=== PATIENT | female | born 1985 | race African-American/Black ===

== ENCOUNTER 2017-02-14 13:17 | Emergency (ER) | payer SELFPAY ==
[2017-02-14 13:27] VITALS: BP 138/90
--- NOTE | 2017-02-14 14:36 | ER Document Report ---
ED Oral Problem - General Chief Complaint: Toothache Stated Complaint: MOUTH PAIN Time seen by provider: 14:15 Mode of Arrival: Ambulatory Information source: Patient, [facility] Records Notes: This 31-year-old female patient comes to the emergency room complaining of toothache to the right upper jaw for several days. She has a long history of dental decay, she has not been seen here for this problem in almost a year. She reports the pain is going up into the right face causing headache. There is no fever, there is no nausea vomiting diarrhea. TRAVEL OUTSIDE OF THE [place] IN LAST 30 DAYS: No - Related Data Allergies/Adverse Reactions: No Known Allergies Allergy (Verified 04/30/16 17:08) Past Medical History - General Information source: Patient, [facility] Records - Social History Smoking Status: Current Every Day Smoker Cigarette use (# per day): Yes Chew tobacco use (# tins/day): No Smoking Education Provided: No Frequency of alcohol use: Occasional Drug Abuse: None Lives with: Friend Family History: Reviewed & Not Pertinent - Past Medical History Cardiac Medical History: Reports: Hx Hypertension - Patient does not take medications for her blood pressure problems Pulmonary Medical History: Reports: Hx Asthma Surgical Hx: Negative - Immunizations Immunizations up to date: No Hx Diphtheria, Pertussis, Tetanus Vaccination: Yes - 08/02/2011 Review of Systems - Review of Systems Constitutional: No symptoms reported EENT: Dental problem Cardiovascular: No symptoms reported Respiratory: No symptoms reported Gastrointestinal: No symptoms reported Genitourinary: No symptoms reported Female Genitourinary: No symptoms reported Musculoskeletal: No symptoms reported Skin: No symptoms reported Hematologic/Lymphatic: No symptoms reported Neurological/Psychological: No symptoms reported Physical Exam - Vital signs Vitals: Temp Pulse Resp BP Pulse Ox 98.4 F 64 16 138/90 H 98 02/14/17 13:25 02/14/17 13:25 02/14/17 13:25 02/14/17 13:25 02/14/17 13:25 Interpretation: Normal - General General appearance: Appears well, Alert In distress: None - HEENT Head: Normocephalic, Atraumatic Eyes: Normal Pupils: PERRL Mouth/Lips: Other - Right upper first molar is quite tender to percuss. The second premolar and the second molar are missing.There are several other teeth that are decayed and broken off at the gum or missing. There is no gum swelling noted. Pharynx: Normal Neck: Normal - Respiratory Respiratory status: No respiratory distress - Cardiovascular Rhythm: Regular - Abdominal Inspection: Normal - Back Back: Normal - Extremities General upper extremity: Normal inspection General lower extremity: Normal inspection - Neurological Neuro grossly intact: Yes - Psychological Associated symptoms: Normal affect, Normal mood - Skin Skin Temperature: Warm Skin Moisture: Dry Skin Color: Normal Course - Vital Signs Vital signs: Temp Pulse Resp BP Pulse Ox 98.4 F 64 16 138/90 H 98 02/14/17 13:25 02/14/17 13:25 02/14/17 13:25 02/14/17 13:25 02/14/17 13:25 Discharge - Discharge Clinical Impression: Toothache Condition: Stable Disposition: HOME, SELF-CARE Instructions: Dentist Additional Instructions: Toothache: Your pain is due to dental decay. The tooth must be repaired in order for you to feel better. You will, therefore, be referred to a dentist. Severe swelling or drainage around a tooth usually means a deep dental abscess. This also requires evaluation and treatment by the dentist, but antibiotics may be prescribed while awaiting dental treatment. You should be rechecked immediately if you develop major swelling of the face, increasing pain, a lump in the jaw or gums, headache, or fever. TAKE THE MEDICATION PRESCRIBED. FOLLOW UP WITH A DENTIST. Prescriptions: Clindamycin HCl 300 mg PO Q6 #28 capsule Hydrocodone/Acetaminophen [Hydrocodon-Acetaminophen 5-325] 1 each PO Q4 PRN #15 tablet PRN Reason:
== END 2017-02-14 14:42 | disposition home or self-care (01) ==
LOC: ER 13:17
DX: K08.89 Other specified disorders of teeth and supporting structures (principal); R68.84 Jaw pain; F17.210 Nicotine dependence, cigarettes, uncomplicated
CPT/HCPCS: 99282

== ENCOUNTER 2017-06-23 13:36 | Emergency (ER) | payer SELFPAY ==
[2017-06-23] MEDS ORDERED: DEXAMETHASONE 4 MG TABLET PO ONE (15:28)
[2017-06-23] MEDS ORDERED: DIPHENHYDRAMINE HCL 50 MG CAPSULE PO ONE (15:28)
--- NOTE | 2017-06-23 15:31 | ER Document Report ---
HPI - HPI Patient complains to provider of: Right eyelid swelling Onset: Yesterday Onset/Duration: Gradual Quality of pain: Achy Pain Level: 4 Context: Patient presents complaining of right upper eyelid swelling that started yesterday. Patient states that eyelid has been very itchy. Patient noticed some drainage to her right eye today. Associated Symptoms: Other - Right eyelid swelling Exacerbated by: Denies Relieved by: Denies Similar symptoms previously: No Recently seen / treated by doctor: No - ROS ROS below otherwise negative: Yes Systems Reviewed and Negative: Yes All other systems reviewed and negative - EENT EENT: REPORTS: Eye problems - CARDIOVASCULAR Cardiovascular: DENIES: Chest pain - GASTROINTESTINAL Gastrointestinal: DENIES: Nausea - REPRODUCTIVE Reproductive: DENIES: : - MUSCULOSKELETAL Musculoskeletal: DENIES: Neck Pain - DERM Skin Color: Normal Past Medical History - General Information source: Patient - Social History Smoking Status: Current Every Day Smoker Chew tobacco use (# tins/day): No Frequency of alcohol use: Occasional Drug Abuse: None 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 Lives with: Spouse/Significant other Family History: Reviewed & Not Pertinent Patient has suicidal ideation: No Patient has homicidal ideation: No - Past Medical History Cardiac Medical History: Reports: Hx Hypertension - Patient does not take medications for her blood pressure problems Pulmonary Medical History: Reports: Hx Asthma Renal/ Medical History: Denies: Hx Peritoneal Dialysis Surgical Hx: Negative - Immunizations Immunizations up to date: No Hx Diphtheria, Pertussis, Tetanus Vaccination: Yes - 08/02/2011 Vertical Provider Document - CONSTITUTIONAL Agree With Documented VS: Yes Exam Limitations: No Limitations General Appearance: WD/WN, No Apparent Distress - INFECTION CONTROL TRAVEL OUTSIDE OF THE [place] IN LAST 30 DAYS: No - HEENT HEENT: Atraumatic, Normocephalic Notes: No fluorescein uptake, no corneal abrasion, ulcer, or dendrite, no foreign body. Extraocular movements intact, Perrl, no proptosis Patient with swelling to right upper eyelid, patient with a discrete lesion to medial aspect of right upper eyelid concerning for possible insect bite, no concern for orbital or preseptal cellulitis at this time - NECK Neck: Normal Inspection - RESPIRATORY Respiratory: Breath Sounds Normal, No Respiratory Distress - CARDIOVASCULAR Cardiovascular: Regular Rate, Regular Rhythm - BACK Back: Normal Inspection - MUSCULOSKELETAL/EXTREMETIES Musculoskeletal/Extremeties: MAEW - NEURO Level of Consciousness: Awake, Alert, Appropriate Motor/Sensory: No Motor Deficit - DERM Integumentary: Warm, Dry, No Rash. 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
[2017-06-23 20:40] VITALS: BP 128/84
== END 2017-06-23 16:00 | disposition home or self-care (01) ==
LOC: ER 13:36
DX: H02.843 Edema of right eye, unspecified eyelid (principal); L29.8 Other pruritus; L98.9 Disorder of the skin and subcutaneous tissue, unspecified; H57.8 Other specified disorders of eye and adnexa; I10 Essential (primary) hypertension; J45.909 Unspecified asthma, uncomplicated; F17.200 Nicotine dependence, unspecified, uncomplicated
CPT/HCPCS: 99282

== ENCOUNTER 2017-08-29 15:15 | Emergency (ER) | payer SELFPAY ==
[2017-08-29 15:39] VITALS: BP 134/78
[2017-08-29] MEDS ORDERED: IBUPROFEN 800 MG TABLET PO ONE (16:11)
[2017-08-29] MEDS ORDERED: CYCLOBENZAPRINE HCL 10 MG TABLET PO ONE (16:11)
--- NOTE | 2017-08-29 16:17 | ER Document Report ---
ED Neck/Back Problem - General Chief Complaint: Neck Pain >24hrs old Stated Complaint: NECK PAIN Time Seen by Provider: 08/29/17 15:55 Mode of Arrival: Ambulatory Information source: Patient Notes: 32-year-old female presents to ED for complaint of left-sided neck and upper back pain for week. She denies any injury but states that the pain is not getting any better. She states she has pain when she coughs or laughs or moves her left shoulder or neck. Respirations even on labored speaking in full sentences moving some but winces when she moves her left shoulder. TRAVEL OUTSIDE OF THE [place] IN LAST 30 DAYS: No - HPI Patient complains to provider of: Pain, Neck, Upper back Onset: Last week Onset: Gradual Timing: Waxing and waning, Still present Quality of pain: Sharp Severity: Moderate Pain Level: 4 Context: Lifting, Turning Recent injury: No - States she does not remember any injuries Exacerbated by: Cough/deep breaths, Movement of neck Similar symptoms previously: Yes Recently seen / treated by doctor: No - Related Data Allergies/Adverse Reactions: No Known Allergies Allergy (Verified 08/29/17 15:39) Past Medical History - General Information source: Patient - Social History Smoking Status: Current Every Day Smoker Cigarette use (# per day): Yes - 6 cigarettes a day Chew tobacco use (# tins/day): No Smoking Education Provided: Yes - Less than 2 minutes Frequency of alcohol use: Social Drug Abuse: None Occupation: [employer] with: Parents Family History: DM, Hypertension. denies: Arthritis, CAD, COPD, CVA, Hyperlipidemia, Malignancy, Thyroid Disfunction Patient has suicidal ideation: No Patient has homicidal ideation: No - Past Medical History Cardiac Medical History: Reports: Hx Hypertension - Patient does not take medications for her blood pressure problems Pulmonary Medical History: Reports: Hx Asthma, Hx Bronchitis EENT Medical History: Reports: None Neurological Medical History: Reports: None Endocrine Medical History: Reports: None Renal/ Medical History: Reports: None Malignancy Medical History: Reports: None GI Medical History: Reports: None Musculoskeltal Medical History: Reports None Skin Medical History: Reports None Psychiatric Medical History: Reports: None Traumatic Medical History: Reports: None Infectious Medical History: Reports: None Surgical Hx: Negative Past Surgical History: Reports: None - Immunizations Immunizations up to date: No Hx Diphtheria, Pertussis, Tetanus Vaccination: Yes - 08/02/2011 Review of Systems - Review of Systems Constitutional: No symptoms reported EENT: No symptoms reported Cardiovascular: No symptoms reported Respiratory: No symptoms reported Gastrointestinal: No symptoms reported Genitourinary: No symptoms reported Female Genitourinary: No symptoms reported Musculoskeletal: Back pain, Muscle pain, Muscle stiffness, Neck pain Skin: No symptoms reported Hematologic/Lymphatic: No symptoms reported Neurological/Psychological: No symptoms reported -: Yes All other systems reviewed and negative Physical Exam - Vital signs Vitals: Temp Pulse Resp BP Pulse Ox 98.8 F 72 16 134/78 H 100 08/29/17 15:34 08/29/17 15:34 08/29/17 15:34 08/29/17 15:34 08/29/17 15:34 Interpretation: Normal - General General appearance: Appears well, Alert - HEENT Head: Normocephalic, Atraumatic Eyes: Normal Pupils: PERRL - Respiratory Respiratory status: No respiratory distress Chest status: Nontender Breath sounds: Normal Chest palpation: Normal - Cardiovascular Rhythm: Regular Heart sounds: Normal auscultation Murmur: No - Abdominal Inspection: Normal Distension: No distension Bowel sounds: Normal Tenderness: Nontender Organomegaly: No organomegaly - Back Back: Normal, Tender - Pain to left neck shoulder and scapular area. "Left trapezius". No: Deformity/step-off, CVA tenderness, Vertebra tenderness, Scars , Scoliosis, Wounds - Extremities General upper extremity: Normal inspection, Nontender, Normal color, Normal ROM , Normal temperature General lower extremity: Normal inspection, Nontender, Normal color, Normal ROM , Normal temperature, Normal weight bearing. No: Artis's sign - Neurological Neuro grossly intact: Yes Cognition: Normal Orientation: AAOx4 Bondurant Coma Scale Eye Opening: Spontaneous Daljit Coma Scale Verbal: Oriented Daljit Coma Scale Motor: Obeys Commands Bondurant Coma Scale Total: 15 Speech: Normal Motor strength normal: LUE, RUE, LLE, RLE Sensory: Normal - Psychological Associated symptoms: Normal affect, Normal mood - Skin Skin Temperature: Warm Skin Moisture: Dry Skin Color: Normal Course - Re-evaluation Re-evalutation: 08/29/17 16:28 Patient treated with ibuprofen and Flexeril and discharged home with prescription for ibuprofen and Flexeril. Patient was given instructions for exercises for the left shoulder and to follow-up with primary doctor and also if pain continues. - Vital Signs Vital signs: Temp Pulse Resp BP Pulse Ox 98.8 F 72 16 134/78 H 100 08/29/17 15:34 08/29/17 15:34 08/29/17 15:34 08/29/17 15:34 08/29/17 15:34 Discharge - Discharge Clinical Impression: Strain of left trapezius muscle Qualifiers: Encounter type: initial encounter Qualified Code(s): S46.812A - Strain of other muscles, fascia and tendons at shoulder and upper arm level, left arm, initial encounter Condition: Stable Disposition: HOME, SELF-CARE Instructions: Exercise Program for the Shoulder ([facility]) Additional Instructions: MUSCLE STRAIN: You have strained a muscle -- torn the fibers within the muscle. This often occurs with strenuous exertion, or during an injury that suddenly stretches the muscle. The seriousness of a strain varies. Some strains heal within days, others cause problems for months. X-rays cannot show a muscle strain. X-rays are taken only if symptoms suggest that a fracture could be present. The usual treatment of a muscle strain is rest and ice packs. Sometimes, a sling, splint, or crutches may be necessary to rest the muscle. The muscle can be used again once pain subsides. Severe strains require a special exercise and stretching program to prevent permanent stiffness and disability. Your doctor will advise you if this will be necessary. Call the doctor immediately if pain or swelling becomes severe, or if numbness or discoloration develop. ICE PACKS: Apply ice packs frequently against the painful area. Many different schedules are recommended, such as "20 minutes on, 20 minutes off" or "one hour ice, two hours rest." If you need to work, you may need to go longer between ice treatments. You should plan to have the area ice packed AT LEAST one fourth of the time. The ice should be applied over the wrap, tape, or splint, or over a layer of cloth -- not directly against the skin. Some ice bags have a built-in cloth and can be put directly on the skin. WARM PACKS: After approximately two days, apply gentle heat (such as a heating pad or hot water bottle) for about 20 to 30 minutes about every two hours -- at least four times daily. Warmth and elevation will help you make a more rapid recovery , and will ease the pain considerably. Do not use HOT heat, and never apply heat for longer than 30 minutes. The continuous heat can invisibly damage skin and muscles -- even when no burn is seen on the surface. Damaged muscles can make you MORE sore. MUSCLE RELAXERS: Muscle relaxing medications are usually prescribed for acute muscle spasm or injury to the neck and back. They are often combined with antiinflammatory pain medication for increased relief. You may stop the muscle relaxer when the pain and stiffness have improved. Start the medication again if spasms recur. Muscle relaxers may cause drowsiness, especially with the first dose. Do not operate machinery or drive while under the effects of the medication. Most muscle relaxers last up to 24 hours. Do not combine the medication with alcohol. Ibuprofen Ibuprofen is an excellent, safe drug for pain control. In addition, it has potent antiinflammatory effects which are beneficial, especially in the treatment of injuries, arthritis, or tendonitis. It's best to take ibuprofen with food. Persons with ulcer disease or allergy to aspirin should notify their physician of this before taking ibuprofen. Take the medication exactly as prescribed. Don't take additional doses unless instructed to do so by your doctor. If you develop wheezing, shortness of breath, hives, faintness, stomach pain, vomiting, or dark black stools, return for re-evaluation at once. FOLLOW-UP CARE: If you have been referred to a physician for follow-up care, call the physician s office for an appointment as you were instructed or within the next two days. If you experience worsening or a significant change in your symptoms, notify the physician immediately or return to the Emergency Department at any time for re-evaluation. Prescriptions: Ibuprofen 600 mg PO Q8HP PRN #20 tablet PRN Reason: Cyclobenzaprine HCl [Flexeril 10 mg Tablet] 10 mg PO TIDP PRN #15 tab PRN Reason: Forms: Elevated Blood Pressure, Smoking Cessation Education, Return to Work Referrals: [facility] [Provider Group] - Follow up as needed YUE MAHONEY MD [ACTIVE STAFF] - Follow up as needed
== END 2017-08-29 16:26 | disposition home or self-care (01) ==
LOC: ER 15:15
DX: S46.812A Strain of other muscles, fascia and tendons at shoulder and upper arm level, left arm, initial encounter (principal); M54.2 Cervicalgia; M54.6 Pain in thoracic spine; M25.512 Pain in left shoulder; F17.210 Nicotine dependence, cigarettes, uncomplicated; X58.XXXA Exposure to other specified factors, initial encounter
CPT/HCPCS: 99283

== ENCOUNTER 2017-11-13 09:16 | Emergency (ER) | payer SELFPAY ==
--- NOTE | 2017-11-13 09:42 | ER Document Report ---
ED General - General Chief Complaint: Neck Problem Stated Complaint: NECK PAIN Time Seen by Provider: 11/13/17 09:34 Mode of Arrival: Ambulatory Information source: Patient TRAVEL OUTSIDE OF THE [place] IN LAST 30 DAYS: No - HPI Notes: 32-year-old female presents today with complaints of reoccurring left-sided neck pain x 1 month. Reports pain is 7 out of 10, achy. Reports she was seen previous me for her neck pain, given Flexeril and ibuprofen with some relief. Denies any issues with swallowing, drooling, trismus, headache, chest pain shortness of breath, nausea, vomiting, abdominal pain, blurred vision, double vision, loss of vision. Denies any trauma. Denies any rashes. Denies headaches. Reports worse when she moves her head to the left. Has not been seen by her primary care for this issue. Unsure . - Related Data Allergies/Adverse Reactions: No Known Allergies Allergy (Verified 11/13/17 09:18) Past Medical History - General Information source: Patient - Social History Smoking Status: Unknown if Ever Smoked Family History: None, DM, Hypertension. denies: Arthritis, CAD, COPD, CVA, Hyperlipidemia, Malignancy, Thyroid Disfunction - Past Medical History Cardiac Medical History: Reports: Hx Hypertension - Patient does not take medications for her blood pressure problems Pulmonary Medical History: Reports: Hx Asthma, Hx Bronchitis Renal/ Medical History: Denies: Hx Peritoneal Dialysis - Immunizations Immunizations up to date: No Hx Diphtheria, Pertussis, Tetanus Vaccination: Yes - 08/02/2011 Review of Systems - Review of Systems Constitutional: No symptoms reported EENT: No symptoms reported Cardiovascular: No symptoms reported Respiratory: No symptoms reported Gastrointestinal: No symptoms reported Genitourinary: No symptoms reported Female Genitourinary: No symptoms reported Musculoskeletal: See HPI Skin: No symptoms reported Hematologic/Lymphatic: No symptoms reported Neurological/Psychological: No symptoms reported Physical Exam - Vital signs Vitals: Temp Pulse Resp BP Pulse Ox 98.6 F 76 16 135/92 H 99 11/13/17 09:22 11/13/17 09:22 11/13/17 09:22 11/13/17 09:22 11/13/17 09:22 - Notes Notes: PHYSICAL EXAMINATION: GENERAL: Well-appearing, well-nourished and in no acute distress. HEAD: Atraumatic, normocephalic. EYES: Pupils equal round and reactive to light, extraocular movements intact, conjunctiva are normal. ENT: Nares patent, oropharynx clear without exudates. Moist mucous membranes. NECK: supple without lymphadenopathy. Limited APROM to the left. Negative spurlings test. Shredder Picker + 2 bilaterally and equally. Dtr +2 bilaterally and equally in BUE. Perrla, full eomi. Face symmetrical. No rashes observed. Point tenderness to right paraspinal muscles near C6. Full APROM of shoulders. TMs intact bilaterally. No lymphadenopathy. Full APROM with shoulders. TMJ without any crepitus or clicking. Open close mouth without any pain. No open wounds or drainage. No meningismus. No noted lymphadenopathy LUNGS: Breath sounds clear to auscultation bilaterally and equal. No wheezes rales or rhonchi. HEART: Regular rate and rhythm without murmurs ABDOMEN: Soft, nontender, nondistended abdomen. No guarding, no rebound. No masses appreciated. Female : deferred Musculoskeletal: Normal range of motion, no pitting or edema. No cyanosis. NEUROLOGICAL: Cranial nerves grossly intact. Normal speech, normal gait. Normal sensory, motor exams PSYCH: Normal mood, normal affect. SKIN: Warm, Dry, normal turgor, no rashes or lesions noted. Course - Re-evaluation Re-evalutation: Rechecked the patient who is resting comfortably. On re-exam, patient is symptomatically improved. Discussed the results of the radiology as well as the diagnosis at great length. Discussed the need to return to the ER for any new or worsening sx. Patient understands to take the Rx as directed. All questions answered. Patient comfortable with the decision to go home. 11/13/17 13:16 - Vital Signs Vital signs: Temp Pulse Resp BP Pulse Ox 97.6 F 62 18 123/79 99 11/13/17 11:57 11/13/17 11:57 11/13/17 11:57 11/13/17 11:57 11/13/17 09:22 Discharge - Discharge Clinical Impression: Muscle spasm Condition: Good Disposition: HOME, SELF-CARE Additional Instructions: Nerve Contusion Your symptoms indicate a bruising injury to a nerve. This usually heals completely. If there is only minor injury, you could be better in a few days. Severe crushing of the nerve can take months to heal. For the first couple of days after the injury, treat with ice, elevation, and rest. Even after the swelling and tenderness go away, don't rub or press on the area. (You may feel a shock-like sensation when you move the area or bump it.) Follow up with the doctor as instructed. advised to return to the ER if any signs or symptoms became worse. Drive while taking Flexeril, do not operate heavy machinery or drink etoh. Take over-the- counter Motrin and Tylenol as needed for any fevers or pain. Follow up with primary care within 1-2 days. All questions and concerns answered by this provider. Patient/family states would follow plan of care and agreed to plan of care. Patient was discharged home and off unit without incident. Please excuse any errors in this document was done by tish dictation. Prescriptions: Cyclobenzaprine HCl [Flexeril 10 mg Tablet] 10 mg PO TIDP PRN #15 tab PRN Reason: Meloxicam 15 mg PO DAILY #7 tablet Forms: Return to Work
--- NOTE | 2017-11-13 10:45 | RADIOLOGY REPORT (SQ) ---
EXAM DESCRIPTION: CERV SP 4 OR 5 VIEWS COMPLETED DATE/TIME: 11/13/2017 10:18 am REASON FOR STUDY: neck pain COMPARISON: None. NUMBER OF VIEWS: Five views. TECHNIQUE: AP, lateral, obliques and odontoid radiographic images acquired of the cervical spine. LIMITATIONS: None. FINDINGS: MINERALIZATION: Normal. ALIGNMENT: Anatomic. VERTEBRAE: Vertebral bodies of normal height. DISCS: No significant osteophytes or sclerosis. Disc height maintained. FORAMINA: No osteophytes or foraminal narrowing. LATERAL AND POSTERIOR ELEMENTS: Facets, lateral masses and spinous processes without significant find ings. HARDWARE: None in the spine. SOFT TISSUES: No masses or calcifications. Lung apices clear. OTHER: No other significant finding. IMPRESSION: NO SIGNIFICANT RADIOGRAPHIC FINDING IN THE CERVICAL SPINE. TECHNICAL DOCUMENTATION: JOB ID: [id number] [employer]- All Rights Reserved
[2017-11-13] MEDS ORDERED: CYCLOBENZAPRINE HCL 10 MG TABLET PO ONE (11:28)
[2017-11-13 12:03] VITALS: BP 123/79
== END 2017-11-13 12:00 | disposition home or self-care (01) ==
LOC: ER 09:16
DX: M62.838 Other muscle spasm (principal); M54.2 Cervicalgia; Z79.899 Other long term (current) drug therapy
CPT/HCPCS: 72050; 81025; 99283

== ENCOUNTER 2017-12-24 18:08 | Emergency (ER) | payer SELFPAY ==
--- NOTE | 2017-12-24 18:57 | ER Document Report ---
ED General - General Chief Complaint: Toothache Stated Complaint: TOOTHACHE Mode of Arrival: Ambulatory Information source: Patient TRAVEL OUTSIDE OF THE [place] IN LAST 30 DAYS: No - HPI Notes: 32-year-old female presents today with complaints of left lower dental pain 3 days. pain is 6/10, achy and throbbing with eating. better with advil, worse with eating hard foods. reports cold sensitivity. smoker [id number] years. No throat swelling and difficulty tolerating secretions. Unsure , Denies fevers, chills, chest pain, shortness of breath, nausea, vomiting, diarrhea, abdominal pain, hematuria,blurred vision, double vision, loss of vision, speech changes, LH, dizziness, syncope, headaches, neck pain, weakness, bowel or bladder dysfunction, saddle anesthesia, numbness or tingling in bilateral upper or lower extremities equally, muscle paralysis, weakness in bilateral upper or lower extremities equally or rash - Related Data Allergies/Adverse Reactions: Penicillins Allergy (Verified 12/24/17 18:09) Past Medical History - General Information source: Patient - Social History Smoking Status: Current Every Day Smoker Family History: None, DM, Hypertension. denies: Arthritis, CAD, COPD, CVA, Hyperlipidemia, Malignancy, Thyroid Disfunction - Past Medical History Cardiac Medical History: Reports: Hx Hypertension - Patient does not take medications for her blood pressure problems Pulmonary Medical History: Reports: Hx Asthma, Hx Bronchitis Renal/ Medical History: Denies: Hx Peritoneal Dialysis - Immunizations Immunizations up to date: No Hx Diphtheria, Pertussis, Tetanus Vaccination: Yes - 08/02/2011 Review of Systems - Review of Systems Constitutional: No symptoms reported EENT: See HPI Cardiovascular: No symptoms reported Respiratory: No symptoms reported Gastrointestinal: No symptoms reported Genitourinary: No symptoms reported Female Genitourinary: No symptoms reported Musculoskeletal: No symptoms reported Skin: No symptoms reported Hematologic/Lymphatic: No symptoms reported Neurological/Psychological: No symptoms reported Physical Exam - Vital signs Vitals: Temp Pulse Resp BP Pulse Ox 99.4 F 115 H 20 134/91 H 98 12/24/17 18:11 12/24/17 18:11 12/24/17 18:11 12/24/17 18:11 12/24/17 18:11 - Notes Notes: PHYSICAL EXAMINATION: GENERAL: Well-appearing, well-nourished and in no acute distress. HEAD: Atraumatic, normocephalic. EYES: Pupils equal round and reactive to light, extraocular movements intact, conjunctiva are normal. ENT: Nares patent, oropharynx clear without exudates. Moist mucous membranes. # 18 gingiva with swelling, erythema and induration. No drainage or open wounds. No fluctuance. No facial swelling. Poor oral dentition, right lower jaw with extensive dental caries, no definite swelling or effusion. NECK: Normal range of motion, supple without lymphadenopathy LUNGS: Breath sounds clear to auscultation bilaterally and equal. No wheezes rales or rhonchi. HEART: Regular rate and rhythm without murmurs ABDOMEN: Soft, nontender, nondistended abdomen. No guarding, no rebound. No masses appreciated. Female : deferred Musculoskeletal: Normal range of motion, no pitting or edema. No cyanosis. NEUROLOGICAL: Cranial nerves grossly intact. Normal speech, normal gait. Normal sensory, motor exams PSYCH: Normal mood, normal affect. SKIN: Warm, Dry, normal turgor, no rashes or lesions noted. Course - Re-evaluation Re-evalutation: Discussed with patient that she is. Follow-up with dentist within 1 week. Take [id number] ibuprofen and Tylenol as needed for pain. Warm compress to site 20 minutes on 20 minutes off several times a day. Take antibiotics as directed. Eat yogurt daily to prevent loose stool. After performing a Medical Screening Examination, I estimate there is LOW risk for a DEEP SPACE INFECTION (e.g., RACHANA'S ANGINA OR RETROPHARYNGEAL ABSCESS), MENINGITIS, INTRACRANIAL HEMORRHAGE, or AIRWAY COMPROMISE, thus I consider the discharge disposition reasonable. Also, there is no evidence or peritonitis, sepsis, or toxicity. I have reevaluated this patient multiple times and no significant life threatening changes are noted. The patient and I have discussed the diagnosis and risks, and we agree with discharging home with close follow-up with the understanding that symptoms and presentations can change. We also discussed returning to the Emergency Department immediately if new or worsening symptoms occur. We have discussed the symptoms which are most concerning (e.g., changing or worsening pain, trouble swallowing or breathing, neck stiffness or fever) that necessitate immediate return. 12/24/17 20:10 - Vital Signs Vital signs: Temp Pulse Resp BP Pulse Ox 99.4 F 115 H 20 134/91 H 98 12/24/17 18:11 12/24/17 18:11 12/24/17 18:11 12/24/17 18:11 12/24/17 18:11 Discharge - Discharge Clinical Impression: Dental caries Condition: Good Disposition: HOME, SELF-CARE Instructions: [facility], Dentist, Toothache (OM) Additional Instructions: Dental Infection or Abscess You have an infection, perhaps an abscess (pus formation) of the gum around one of your teeth, which is probably decayed. If there is an abscess, it may drain on its own or it may need to be opened or lanced. Severe swelling or drainage around a tooth usually means a deep dental abscess which usually requires evaluation and treatment by a dentist or oral surgeon. Antibiotics may be prescribed while awaiting dental treatment. If you develop high fever with chills, worsening pain, or increasing swelling in the area, see a dentist or oral surgeon immediately or return to the Emergency Department immediately. Prescriptions: Clindamycin HCl 300 mg PO Q6H #28 capsule Referrals: FELIPE CASIANO MD [ACTIVE STAFF] - Follow up as needed
[2017-12-24] MEDS ORDERED: ACETAMINOPHEN 325 MG TABLET PO ONE (19:30)
[2017-12-24] MEDS ORDERED: KETOROLAC TROMETHAMINE 60 MG/2 ML SDV IM ONE (20:41)
[2017-12-24 21:10] VITALS: BP 120/87
== END 2017-12-24 21:12 | disposition home or self-care (01) ==
LOC: ER 18:08
DX: K02.9 Dental caries, unspecified (principal); F17.210 Nicotine dependence, cigarettes, uncomplicated; I10 Essential (primary) hypertension; Z88.0 Allergy status to penicillin
CPT/HCPCS: 99283; 96372; 81025; J1885

== ENCOUNTER 2018-03-03 17:02 | Emergency (ER) | payer SELFPAY ==
[2018-03-03] MEDS ORDERED: NORMAL SALINE 1000 ML 1,000 ML IV PRN (17:58)
[2018-03-03] MEDS ORDERED: ONDANSETRON HCL INJ/PF 4 MG/2 ML SDV IV ONE (17:58)
[2018-03-03] MEDS ORDERED: HYDROMORPHONE HCL INJ/PF 2 MG/ML AMPULE IV ONE (17:58)
--- NOTE | 2018-03-03 18:05 | ER Document Report ---
ED Medical Screen (RME) - General Chief Complaint: Abdominal Pain Stated Complaint: ABDOMINAL PAIN Time Seen by Provider: 03/03/18 17:54 Mode of Arrival: Ambulatory Information source: Patient TRAVEL OUTSIDE OF THE [place] IN LAST 30 DAYS: No - HPI Onset: Other - 4 DAYS Onset/Duration: Gradual Quality of pain: Other - CAN'T / WON'T DESCRIBE Severity: Moderate Associated Symptoms: Nausea, Vomiting. denies: Vaginal bleeding Exacerbated by: Denies Relieved by: Denies Similar symptoms previously: Yes - UNKNOWN Dx Recently seen / treated by doctor: No - Related Data Allergies/Adverse Reactions: Penicillins Allergy (Verified 12/24/17 18:09) Past Medical History - General Information source: Patient - Social History Chew tobacco use (# tins/day): No Frequency of alcohol use: Occasional Drug Abuse: None - Past Medical History Cardiac Medical History: Reports: Hx Hypertension - Patient does not take medications for her blood pressure problems Pulmonary Medical History: Reports: Hx Asthma, Hx Bronchitis Neurological Medical History: Reports: None Endocrine Medical History: Reports: None Renal/ Medical History: Reports: None. Denies: Hx Peritoneal Dialysis Malignancy Medical History: Reports: None GI Medical History: Reports: None Musculoskeltal Medical History: Reports None Psychiatric Medical History: Reports: None Surgical Hx: Negative - Immunizations Immunizations up to date: No Hx Diphtheria, Pertussis, Tetanus Vaccination: Yes - 08/02/2011 Review of Systems - Review of Systems Constitutional: No symptoms reported EENT: No symptoms reported Cardiovascular: No symptoms reported Respiratory: No symptoms reported Gastrointestinal: See HPI Genitourinary: No symptoms reported Musculoskeletal: No symptoms reported Skin: No symptoms reported Neurological/Psychological: No symptoms reported Physical Exam - Vital signs Vitals: Temp Pulse Resp BP Pulse Ox 98.5 F 78 18 134/89 H 99 03/03/18 17:07 03/03/18 17:07 03/03/18 17:07 03/03/18 17:07 03/03/18 17:07 Interpretation: Normal. No: Tachycardic, Tachypneic, Febrile - General General appearance: Alert In distress: Moderate - HEENT Head: Normocephalic Eyes: Normal Conjunctiva: Normal Ears: Normal Nasal: Normal Mouth/Lips: Normal Mucous membranes: Normal - Respiratory Respiratory status: No respiratory distress - Cardiovascular Rhythm: Regular - Abdominal Inspection: Normal - Extremities General upper extremity: Normal inspection General lower extremity: Normal inspection - Neurological Neuro grossly intact: Yes Cognition: Normal Orientation: AAOx4 - Skin Skin Temperature: Warm Skin Moisture: Dry Skin Color: Normal Skin Turgor: Elastic Course - Vital Signs Vital signs: Temp Pulse Resp BP Pulse Ox 98.5 F 78 18 134/89 H 99 03/03/18 17:07 03/03/18 17:07 03/03/18 17:07 03/03/18 17:07 03/03/18 17:07
[2018-03-03 19:19] LABS: ABSOLUTE BASOPHILS # (AUTO) 0.1 10^3/uL (0.0-0.2); ABSOLUTE EOSINOPHILS # (AUTO) 0.1 10^3/uL (0.0-0.6); ABSOLUTE LYMPHOCYTES (AUTO) 1.7 10^3/uL (0.5-4.7); ABSOLUTE MONOCYTES (AUTO) 0.7 10^3/uL (0.1-1.4); ABSOLUTE NEUT (AUTO) 9.1 10^3/uL (1.7-8.2); BASOPHILS % (AUTO) 0.9 % (0-2); EOSINOPHILS % (AUTO) 0.7 % (0-6); HEMATOCRIT 37.6 % (36.0-47.0); HEMOGLOBIN 11.9 g/dL (12.0-15.5); LYMPHOCYTES % (AUTO) 14.5 % (13-45); MEAN CORPUSCULAR HEMOGLOBIN 21.2 pg (27.0-33.4); MEAN CORPUSCULAR HGB CONC 31.6 g/dL (32.0-36.0); MEAN CORPUSCULAR VOLUME 67 fl (80-97); MONOCYTES % (AUTO) 6.2 % (3-13); PLATELET COUNT 251 10^3/uL (150-450); RED BLOOD COUNT 5.61 10^6/uL (3.72-5.28); RED CELL DISTRIBUTION WIDTH 16.8 % (11.5-14.0); SEGMENTED NEUTROPHILS % (AUTO) 77.7 % (42-78); TOTAL CELLS COUNTED % (AUTO) 100 %; WHITE BLOOD COUNT 11.6 10^3/uL (4.0-10.5)
--- NOTE | 2018-03-03 19:42 | ER Document Report ---
ED GI/ - General Chief Complaint: Abdominal Pain Stated Complaint: ABDOMINAL PAIN Time Seen by Provider: 03/03/18 17:54 Mode of Arrival: Ambulatory Notes: The patient is a 32-year-old female who presents with several days of epigastric abdominal pain after she eats. She is also having nausea, vomiting and diarrhea. She denies fevers, right upper quadrant abdominal pain, rash, flank pain, back pain, hematemesis or hematochezia. TRAVEL OUTSIDE OF THE [place] IN LAST 30 DAYS: No - Related Data Allergies/Adverse Reactions: Penicillins Allergy (Verified 12/24/17 18:09) Past Medical History - General Information source: Patient - Social History Smoking Status: Former Smoker Chew tobacco use (# tins/day): No Frequency of alcohol use: Occasional Drug Abuse: None Family History: None, DM, Hypertension. denies: Arthritis, CAD, COPD, CVA, Hyperlipidemia, Malignancy, Thyroid Disfunction Patient has suicidal ideation: No Patient has homicidal ideation: No - Past Medical History Cardiac Medical History: Reports: Hx Hypertension - Patient does not take medications for her blood pressure problems Pulmonary Medical History: Reports: Hx Asthma, Hx Bronchitis Neurological Medical History: Reports: None Endocrine Medical History: Reports: None Renal/ Medical History: Reports: None. Denies: Hx Peritoneal Dialysis Malignancy Medical History: Reports: None GI Medical History: Reports: None Musculoskeltal Medical History: Reports None Psychiatric Medical History: Reports: None Surgical Hx: Negative - Immunizations Immunizations up to date: No Hx Diphtheria, Pertussis, Tetanus Vaccination: Yes - 08/02/2011 Review of Systems - Review of Systems Notes: REVIEW OF SYSTEMS: CONSTITUTIONAL: -fevers, -chills EENT: -eye pain, -difficulty swallowing, -nasal congestion CARDIOVASCULAR: -chest pain, -syncope. RESPIRATORY: -cough, -SOB GASTROINTESTINAL: +epigastric abdominal pain, +nausea, +vomiting, +diarrhea GENITOURINARY: -dysuria, -hematuria MUSCULOSKELETAL: -back pain, -neck pain SKIN: -rash or skin lesions. HEMATOLOGIC: -easy bruising or bleeding. LYMPHATIC: -swollen, enlarged glands. NEUROLOGICAL: -altered mental status or loss of consciousness, -headache, - neurologic symptoms PSYCHIATRIC: -anxiety, -depression. ALL OTHER SYSTEMS REVIEWED AND NEGATIVE. Physical Exam - Vital signs Vitals: Temp Pulse Resp BP Pulse Ox 98.5 F 78 18 134/89 H 99 03/03/18 17:07 03/03/18 17:07 03/03/18 17:07 03/03/18 17:07 03/03/18 17:07 - Notes Notes: PHYSICAL EXAMINATION: GENERAL: Well-appearing, well-nourished and in no acute distress. HEAD: Atraumatic, normocephalic. EYES: Pupils equal round and reactive to light, extraocular movements intact, sclera anicteric, conjunctiva are normal. ENT: nares patent, oropharynx clear without exudates. Moist mucous membranes. NECK: Normal range of motion, supple without lymphadenopathy LUNGS: Breath sounds clear to auscultation bilaterally and equal. No wheezes rales or rhonchi. HEART: Regular rate and rhythm without murmurs ABDOMEN: Soft, mild epigastric tenderness, hyperactive bowel sounds. No guarding, no rebound. No masses appreciated. EXTREMITIES: Normal range of motion, no pitting or edema. No cyanosis. NEUROLOGICAL: Cranial nerves grossly intact. Normal speech, normal gait. Normal sensory and motor exams. PSYCH: Normal mood, normal affect. SKIN: Warm, Dry, normal turgor, no rashes or lesions noted. Course - Re-evaluation Re-evalutation: Patient appears well. She has epigastric tenderness, but normal lipase and rest of blood work is also unremarkable. Suspect a gastritis from her frequent nausea and vomiting. Instructed her to continue to stay hydrated and follow-up with her primary care physician and GI doctor. Given strict return precautions and she understands. - Vital Signs Vital signs: Temp Pulse Resp BP Pulse Ox 98.5 F 78 18 134/89 H 99 03/03/18 17:07 03/03/18 17:07 03/03/18 17:07 03/03/18 17:07 03/03/18 17:07 - Laboratory Result Diagrams: 03/03/18 18:30 03/03/18 20:30 Laboratory results interpreted by me: 03/03/18 03/03/18 03/03/18 18:30 20:13 20:30 WBC 11.6 H RBC 5.61 H Hgb 11.9 L MCV 67 L MCH 21.2 L MCHC 31.6 L RDW 16.8 H Absolute Neutrophils 9.1 H Potassium 3.5 L BUN 5 L Total Protein 6.2 L Urine Ketones 20 H Discharge - Discharge Clinical Impression: Nausea vomiting and diarrhea, Epigastric abdominal pain Condition: Stable Disposition: HOME, SELF-CARE Additional Instructions: VOMITING: Vomiting (or nausea without vomiting) can be caused by many other different problems. It can mean that something's wrong with the stomach, such as ulcers or inflammation or the intestinal tract, such as appendicitis. But it can also be a symptom of a problem that has nothing to do with the stomach or intestines. Vomiting is common with severe headaches, earaches, tonsillitis, and kidney infections, etc. We see it with pneumonia or heart attacks. Drugs can cause nausea and vomiting. Many abdominal problems cause vomiting; for example, gallstones, kidney stones, pancreatitis, and intestinal obstruction ( blocked bowels). In most cases, curing the vomiting depends on fixing the problem that caused it. For temporary relief, we may use an anti-nausea medicine. For home use, we can prescribe suppositories, chewable pills, pills that dissolve in the mouth, or liquid anti-nausea drugs. If the vomiting seems to be caused by a problem in the stomach, acid-suppressing drugs may be prescribed as well. It's important to avoid dehydration. Sip small amounts of clear liquids ( soft drinks, tea, broth, etc) . Try to take fluids frequently even if you are vomiting to prevent dehydration. Take increasing amounts of fluid and when liquids are being consumed successfully, advance to small amounts of bland food (toast, soups, mashed potatoes, etc.) until you are able to resume a regular diet. Avoid aspirin, tobacco, and alcohol. If the vomiting worsens, if the problem that's making you vomit worsens, or if there's evidence of bleeding in the stomach (such as black, tarry stool, or bloody or black vomit), you should return immediately. Also, return if abdominal pain worsens or becomes localized to one area or you develop high fever. Call your doctor if you aren't improved in 24 hours. DIARRHEA, NON-SPECIFIC: Diarrhea means frequent, watery stools. There are many causes. Any problem that keeps the intestinal tract from absorbing water from the stool can lead to diarrhea. A sudden new diarrhea problem is usually caused by a virus, food sensitivity, toxic bacteria, or drugs. In this case, we expect the problem to go away soon. Testing is done only if you seem seriously ill from the diarrhea. If you have chronic diarrhea, or diarrhea that keeps coming back, we need to find out why. Chronic diarrhea can be due to inflammation of the bowels such as Crohn's disease or ulcerative colitis, food sensitivity such as intolerance to lactose or wheat protein, irritable bowel syndrome, and other problems. If your diarrhea is a significant problem but it's not clear why you have it, we' ll refer you to a specialist for further testing. During an episode of diarrhea, drink small amounts (two to six ounces) of clear liquids (soft drinks, sport drinks, herb teas, broth, etc). Take fluids frequently to prevent dehydration. It's usually not a problem to take mild anti- diarrhea medication such as Kaopectate or Pepto-Bismol. As the diarrhea eases, advance to small amounts of bland food (mashed potato, toast) for 24 hours. Call the physician if blood appears in your vomit or stool, if vomiting lasts longer than 24 hours, if the abdominal pain worsens or becomes localized to one area, if you develop high fever, or if you become lightheaded and weak. VIRAL SYNDROME: The physician has diagnosed a viral infection. Viruses not only cause "colds," but can cause many different symptoms including generalized aching, fever, headache, cough, diarrhea, nausea, vomiting, and fatigue. The treatment, for the most part, is simply relief of symptoms. This means that antibiotics are usually not given. Rest, fluids, pain medications and, occasionally, medication for the specific symptoms that are most bothersome will be prescribed. Use good handwashing to avoid passing the virus to others. Shared toys should be cleaned with disinfectant. Clean the toilets, sinks, and counter surfaces in bathrooms. Launder clothing in hot water. Contact the physician if you develop any new or unusual symptoms such as severe headache, stiff neck, high fever, chest pain, productive cough, or shortness of breath. You should be rechecked if you don't see marked improvement within seven to 10 days. INTRAVENOUS (I V) FLUIDS: As part of your care today, you received intravenous (IV) fluids. IV fluids are administered to patients who are dehydrated or to those who have certain chemical (electrolyte) abnormalities that need correcting. ANTINAUSEA MEDICATION: You have been given a medication to suppress nausea and vomiting. This type of medication can be given as a shot, pill, or suppository. It will usually last for many hours. Pills and shots usually last six to eight hours. For the typical illness, only one or two doses of the medication may be necessary. Mild lightheadedness may occur. This type of medicine can cause drowsiness. Do not drive or operate dangerous machinery while under its influence. Do not mix with alcohol. See your doctor at once if you have muscle spasms or tightness, or uncontrollable motions (particularly of the neck, mouth, or jaw). Persistent vomiting or severe lightheadedness should also be evaluated by the physician. FOLLOW-UP CARE: If you have been referred to a physician for follow-up care, call the physician s office for an appointment as you were instructed or within the next two days. If you experience worsening or a significant change in your symptoms, notify the physician immediately or return to the Emergency Department at any time for re-evaluation. Gastritis You have an inflammation of the stomach called gastritis. This commonly causes upper abdominal pain, nausea, and vomiting. In severe cases, bleeding of the stomach lining can occur. Gastritis can be caused by bacteria or viruses , alcohol, or stomach-irritating drugs. Begin with sips of clear liquids. Take increasing amounts of fluid over the first 24 hours. Then start small amounts of bland foods (such as dry toast , applesauce, mashed potato). Gradually resume your usual diet. You should take antacids every two hours until the pain has subsided. Acid -suppressing drugs may be prescribed as well. Avoid aspirin, caffeine, tobacco , and alcohol. If the abdominal pain worsens, or there is evidence of major bleeding in the stomach (such as black, tarry stool, bloody or black vomit, or lightheadedness), you should return immediately. Call the doctor if you aren't improved in 24 to 36 hours. Prescriptions: Omeprazole Magnesium [Prilosec Otc] 20 mg PO Q12H #14 tablet. Ondansetron [Zofran Odt 4 mg Tablet] 1 - 2 tab PO Q4H PRN #15 tab.rapdis PRN Reason: For Nausea/Vomiting Forms: Elevated Blood Pressure Referrals: FRED AVALOS MD [ACTIVE STAFF] - Follow up as needed
[2018-03-03] MEDS ORDERED: PANTOPRAZOLE SODIUM 40 MG VIAL IV ONE (20:00)
[2018-03-03 20:32] LABS: AMORPHOUS SEDIMENT,URINE TRACE /HPF; APPEARANCE,URINE SLIGHTLY-CLOUDY; BILIRUBIN,URINE NEGATIVE (NEGATIVE); COLOR,URINE YELLOW; GLUCOSE, URINE NEGATIVE (NEGATIVE); KETONES,URINE 20 mg/dL (NEGATIVE); LEUKOCYTE ESTERASE,URINE NEGATIVE (NEGATIVE); NITRITE,URINE NEGATIVE (NEGATIVE); PROTEIN,URINE NEGATIVE (NEGATIVE); URINE SPECIFIC GRAVITY 1.012; UROBILINOGEN,URINE NEGATIVE mg/dL (<2.0)
[2018-03-03 21:03] LABS: ALANINE AMINOTRANSFERASE 24 U/L (9-52); ALBUMIN 3.6 g/dL (3.5-5.0); ALKALINE PHOSPHATASE 71 U/L (38-126); ANION GAP 12 (5-19); ASPARTATE AMINO TRANSFERASE 14 U/L (14-36); BILIRUBIN,DIRECT 0.2 mg/dL (0.0-0.4); BILIRUBIN,TOTAL 0.4 mg/dL (0.2-1.3); BLOOD UREA NITROGEN 5 mg/dL (7-20); CARBON DIOXIDE 25 mmol/L (22-30); CHLORIDE 107 mmol/L (98-107); GLUCOSE 91 mg/dL (75-110); LIPASE 27.8 U/L (23-300); POTASSIUM 3.5 mmol/L (3.6-5.0); SODIUM 144.2 mmol/L (137-145); TOTAL PROTEIN 6.2 g/dL (6.3-8.2)
[2018-03-03 21:35] VITALS: BP 132/88
== END 2018-03-03 21:34 | disposition home or self-care (01) ==
LOC: ER 17:02
DX: R10.13 Epigastric pain (principal); R11.2 Nausea with vomiting, unspecified; R19.7 Diarrhea, unspecified; I10 Essential (primary) hypertension; Z87.891 Personal history of nicotine dependence; J45.909 Unspecified asthma, uncomplicated
CPT/HCPCS: 99284; 96374; 96375; 36415; 83690; 84703; 85025; 80053; 81001; J1170; J2405

== ENCOUNTER 2018-03-04 03:19 | Emergency (ER) | payer SELFPAY ==
[2018-03-04] MEDS ORDERED: MAG HYDROX/AL HYDROX/SIMETH SUSP 30 ML UDCUP PO ONE (04:15)
[2018-03-04] MEDS ORDERED: ONDANSETRON HCL INJ/PF 4 MG/2 ML SDV IV ONE (04:15)
[2018-03-04] MEDS ORDERED: KETOROLAC TROMETHAMINE INJ/PF 30 MG/1 ML SDV IV ONE (04:15)
[2018-03-04] MEDS ORDERED: NORMAL SALINE 1000 ML 1,000 ML IV ONE (04:15)
[2018-03-04] MEDS ORDERED: LIDOCAINE 2% VISCOUS SOLN 20 ML UDCUP PO ONE (04:15)
--- NOTE | 2018-03-04 04:16 | ER Document Report ---
ED General - General Chief Complaint: Abdominal Pain Stated Complaint: ABDOMINAL PAIN Time Seen by Provider: 03/04/18 04:08 Notes: Patient is a 32-year-old female who returns emergency department with a chief complaint of epigastric pain and one episode of vomiting since she is previously discharge. Patient states that her pain is not improved but she has not taken any the medications that she was discharged home with. Patient states that her epigastric pain is been for the past 4 days. She admits to nausea vomiting and diarrhea. She denies any fevers, right upper quadrant pain , right lower quadrant pain, flank pain, back pain hematemesis or hematochezia. Patient states that she is recently tested negative on her test earlier this afternoon. Denies any previous abdominal procedures. TRAVEL OUTSIDE OF THE [place] IN LAST 30 DAYS: No - Related Data Allergies/Adverse Reactions: Penicillins Allergy (Verified 12/24/17 18:09) Past Medical History - Social History Smoking Status: Unknown if Ever Smoked Family History: None, DM, Hypertension. denies: Arthritis, CAD, COPD, CVA, Hyperlipidemia, Malignancy, Thyroid Disfunction Patient has suicidal ideation: No Patient has homicidal ideation: No - Past Medical History Cardiac Medical History: Reports: Hx Hypertension - Patient does not take medications for her blood pressure problems Pulmonary Medical History: Reports: Hx Asthma, Hx Bronchitis Renal/ Medical History: Denies: Hx Peritoneal Dialysis - Immunizations Immunizations up to date: No Hx Diphtheria, Pertussis, Tetanus Vaccination: Yes - 08/02/2011 Review of Systems - Review of Systems Constitutional: No symptoms reported EENT: No symptoms reported Cardiovascular: No symptoms reported Respiratory: No symptoms reported Gastrointestinal: See HPI Genitourinary: No symptoms reported Female Genitourinary: No symptoms reported Musculoskeletal: No symptoms reported -: Yes All other systems reviewed and negative Physical Exam - Vital signs Vitals: Temp Pulse Resp BP Pulse Ox 98.7 F 68 18 135/86 H 99 03/04/18 03:32 03/04/18 03:32 03/04/18 03:32 03/04/18 03:32 03/04/18 03:32 - Notes Notes: PHYSICAL EXAM GENERAL: Alert, interacts well. HEAD: Normocephalic, atraumatic. EYES: Pupils equal, round, and reactive to light. Extraocular movements intact. ENT: Oral mucosa moist, tongue midline. NECK: Full range of motion. Supple. Trachea midline. LUNGS: Clear to auscultation bilaterally, no wheezes, rales, or rhonchi. No respiratory distress. HEART: Regular rate and rhythm. No murmurs, gallops, or rubs. ABDOMEN: Soft, nondistended, moderate epigastric pain negative Tse sign. No guarding, rebound, or rigidity.. Bowel sounds present in all 4 quadrants. EXTREMITIES: Moves all 4 extremities spontaneously. No edema, radial and dorsalis pedis pulses 2/4 bilaterally. No cyanosis. NEUROLOGICAL: Alert and oriented x4. Normal speech. PSYCH: Normal affect, normal mood. SKIN: Warm, dry, normal turgor. No rashes or lesions noted. Course - Re-evaluation Re-evalutation: 03/04/18 05:05 Patient is a 32-year-old female who returns emergency department with initial diagnosis of gastritis. Patient was medicated and on repeat abdominal exam still with persistent epigastric tenderness. Patient was sent for a CT of the abdomen pelvis with IV contrast to evaluate for possible perforating gastric ulcer. No evidence of that noted on imaging. Patient again given additional medications. Repeat abdominal exams with pain improving. Discussed with patient that she will need to follow-up with gastroenterology for possible gastric ulcers. Discussed bowel rest utilizing a clear liquid diet and to take medications as directed on her prescriptions. Patient agrees with plan and stable for discharge home - Vital Signs Vital signs: Temp Pulse Resp BP Pulse Ox 98.0 F 81 16 121/80 98 03/04/18 06:36 03/04/18 06:36 03/04/18 06:36 03/04/18 06:36 03/04/18 06:36 - Diagnostic Test Radiology reviewed: Image reviewed, Reports reviewed Discharge - Discharge Clinical Impression: Epigastric abdominal pain Condition: Good Disposition: HOME, SELF-CARE Instructions: Gastritis ([facility]) Prescriptions: Nystatin/Dexameth/Diphen [Magic Mouthwash ([facility] Formula) Susp] 5 ml PO QID #120 ml Sucralfate [Carafate 1 gm Tablet] 1 gm PO ACHS #120 tablet Forms: Return to Work Referrals: KOBY SANCHES MD [ACTIVE STAFF] - Follow up in 1 week
[2018-03-04] MEDS ORDERED: PANTOPRAZOLE SODIUM 40 MG VIAL IV ONE (05:04)
--- NOTE | 2018-03-04 05:53 | RADIOLOGY REPORT (SQ) ---
EXAM DESCRIPTION: CT ABDOMEN AND PELVIS WITH CONTRAST CLINICAL HISTORY: epigastric pain COMPARISON: None Available. TECHNIQUE: CT of the abdomen and pelvis performed following IV administration of 70 mL of Isovue-370. DLP: 843.52 mGycm FINDINGS: Lung Bases: The visualized lung bases are clear. Bones: No destructive bone lesions identified. Abdomen: Liver: The liver has normal size and density. No intrahepatic mass or biliary dilatation. Gallbladder: No calcified gallstones. Spleen, Pancreas, and Adrenal Glands: The spleen, pancreas, and adrenal glands are unremarkable. Kidneys: The kidneys have normal size and contour without evidence of solid mass or hydronephrosis. Vasculature: The aorta and IVC have normal caliber and position. The portal vein is patent. The proximal visceral and renal arteries are patent. Stomach: The stomach and duodenum have normal course. Other: No free intraperitoneal air. Small amount of free fluid. Pelvis: Bladder: Urinary bladder is unremarkable. Bowel: Wall thickening of loops of small bowel without definite dilatation. No transition point. Appendix: Normal appendix. Pelvis: Uterus is unremarkable. IMPRESSION: 1. Findings compatible with acute enteritis. This could be of inflammatory or infectious etiology. This exam was performed according to our departmental dose-optimization program, which includes automated exposure control, adjustment of the mA and/or kV according to patient size and/or use of iterative reconstruction technique.
[2018-03-04 06:37] VITALS: BP 121/80
== END 2018-03-04 06:37 | disposition home or self-care (01) ==
LOC: ER 03:19
DX: R10.13 Epigastric pain (principal); R11.2 Nausea with vomiting, unspecified; R19.7 Diarrhea, unspecified; I10 Essential (primary) hypertension; Z88.0 Allergy status to penicillin
CPT/HCPCS: 99284; 96361; 96374; 96375; 74177; J3490; J1885; S0164; J2405; J7030

== ENCOUNTER 2018-06-14 14:25 | Emergency (ER) | payer SELFPAY ==
[2018-06-14] MEDS ORDERED: IBUPROFEN 600 MG TABLET PO ONE (15:44)
--- NOTE | 2018-06-14 15:44 | ER Document Report ---
ED Medical Screen (RME) - General Chief Complaint: Headache Stated Complaint: HEADACHE Time Seen by Provider: 06/14/18 15:41 Mode of Arrival: Ambulatory Information source: Patient Notes: Patient is a 32-year-old female who presents with chief complaint of weight loss. Patient reports 60-70 pound weight loss over the last month. Patient also reports headache 2 weeks, has not taken any medications for same. Patient reports history of hypertension. Patient reports that the main reason her for her visit today is to get "basic blood work done" to evaluate why she is losing weight. Patient denies any nausea, vomiting, diarrhea, fever or any urinary symptoms. Exam: Patient ambulates with steady gait, appears nontoxic with no distress noted. Lungs are clear to auscultation bilaterally. I have greeted and performed a rapid initial assessment of this patient. A comprehensive ED assessment and evaluation of the patient, analysis of test results and completion of the medical decision making process will be conducted by additional ED providers. Dictation of this chart was performed using voice recognition software; therefore, there may be some unintended grammatical errors. TRAVEL OUTSIDE OF THE [place] IN LAST 30 DAYS: No - Related Data Allergies/Adverse Reactions: Penicillins Allergy (Verified 12/24/17 18:09) Past Medical History - Past Medical History Cardiac Medical History: Reports: Hx Hypertension - Patient does not take medications for her blood pressure problems Pulmonary Medical History: Reports: Hx Asthma, Hx Bronchitis Renal/ Medical History: Denies: Hx Peritoneal Dialysis - Immunizations Immunizations up to date: No Hx Diphtheria, Pertussis, Tetanus Vaccination: Yes - 08/02/2011
[2018-06-14 17:07] LABS: ABSOLUTE EOSINOPHILS # (AUTO) 0.2 10^3/uL (0.0-0.6); ABSOLUTE LYMPHOCYTES (AUTO) 3.1 10^3/uL (0.5-4.7); ABSOLUTE MONOCYTES (AUTO) 0.7 10^3/uL (0.1-1.4); ABSOLUTE NEUT (AUTO) 3.2 10^3/uL (1.7-8.2); BASOPHILS % (AUTO) 0.5 % (0-2); EOSINOPHILS % (AUTO) 2.3 % (0-6); HEMATOCRIT 37.2 % (36.0-47.0); LYMPHOCYTES % (AUTO) 43.3 % (13-45); MEAN CORPUSCULAR HEMOGLOBIN 21.2 pg (27.0-33.4); MEAN CORPUSCULAR HGB CONC 32.2 g/dL (32.0-36.0); MEAN CORPUSCULAR VOLUME 66 fl (80-97); MONOCYTES % (AUTO) 9.4 % (3-13); PLATELET COUNT 245 10^3/uL (150-450); RED BLOOD COUNT 5.65 10^6/uL (3.72-5.28); RED CELL DISTRIBUTION WIDTH 16.4 % (11.5-14.0); SEGMENTED NEUTROPHILS % (AUTO) 44.5 % (42-78); TOTAL CELLS COUNTED % (AUTO) 100 %; WHITE BLOOD COUNT 7.1 10^3/uL (4.0-10.5)
[2018-06-14 17:23] LABS: ALANINE AMINOTRANSFERASE 25 U/L (9-52); ALKALINE PHOSPHATASE 54 U/L (38-126); ANION GAP 9 (5-19); ASPARTATE AMINO TRANSFERASE 18 U/L (14-36); BILIRUBIN,DIRECT 0.2 mg/dL (0.0-0.4); BILIRUBIN,TOTAL 0.4 mg/dL (0.2-1.3); BLOOD UREA NITROGEN 10 mg/dL (7-20); CALCIUM 9.3 mg/dL (8.4-10.2); CARBON DIOXIDE 27 mmol/L (22-30); CHLORIDE 108 mmol/L (98-107); GLUCOSE 80 mg/dL (75-110); SODIUM 144.1 mmol/L (137-145); TOTAL PROTEIN 7.1 g/dL (6.3-8.2)
[2018-06-14 17:24] LABS: APPEARANCE,URINE CLEAR; BILIRUBIN,URINE NEGATIVE (NEGATIVE); GLUCOSE, URINE NEGATIVE (NEGATIVE); KETONES,URINE NEGATIVE (NEGATIVE); LEUKOCYTE ESTERASE,URINE NEGATIVE (NEGATIVE); NITRITE,URINE NEGATIVE (NEGATIVE); PROTEIN,URINE >=500 mg/dL (NEGATIVE)
[2018-06-14 17:27] LABS: COLOR,URINE RED
[2018-06-14 17:47] VITALS: BP 118/74
--- NOTE | 2018-06-14 18:58 | ER Document Report ---
ED General - General Chief Complaint: Headache Stated Complaint: HEADACHE Time Seen by Provider: 06/14/18 15:41 Mode of Arrival: Ambulatory Information source: Patient Notes: 32 yo AAF w/ PMHx of HTN presents with history of intermittent headaches for the past 2-3 months. Denies any symptoms currently. States headaches occur spontaneously without any identifiable triggers, and resolve within a few hours without intervention. Also reports 60 lb weight loss over the course of 1 month stating she was "204 lbs at one point and now 149 lbs" per her weight taken at her plasma [facility] center. Denies vision changes, syncope, dizziness, lightheadedness, CP, palpitations, SOB, n/v/d/c, abdominal pain. TRAVEL OUTSIDE OF THE [place] IN LAST 30 DAYS: No - HPI Patient complains to provider of: headache, weight loss Onset: Other - 2-3 months ago Onset/Duration: Intermittent Quality of pain: Achy Severity: Moderate Associated symptoms: Nausea Relieved by: Other - resolves spontaneously Similar symptoms previously: Yes Recently seen / treated by doctor: No - Related Data Allergies/Adverse Reactions: amoxicillin Allergy (Verified 06/14/18 16:40) Penicillins Allergy (Verified 12/24/17 18:09) Past Medical History - General Information source: Patient - Social History Smoking Status: Current Every Day Smoker Cigarette use (# per day): Yes - 8 Chew tobacco use (# tins/day): No Smoking Education Provided: Yes Frequency of alcohol use: None Drug Abuse: None Lives with: Spouse/Significant other Family History: None, Hypertension. denies: Arthritis, CAD, COPD, CVA, Hyperlipidemia, Malignancy, Thyroid Disfunction Patient has suicidal ideation: No Patient has homicidal ideation: No - Medical History Notes: hypertension - Past Medical History Cardiac Medical History: Reports: Hx Hypertension - Patient does not take medications for her blood pressure problems Pulmonary Medical History: Reports: Hx Asthma, Hx Bronchitis Renal/ Medical History: Denies: Hx Peritoneal Dialysis - Immunizations Immunizations up to date: No Hx Diphtheria, Pertussis, Tetanus Vaccination: Yes - 08/02/2011 Review of Systems - Review of Systems Constitutional: Weight loss. denies: Chills, Fever, Malaise, Weakness, Recent illness EENT: denies: Blurred vision, Double vision, Vertigo Cardiovascular: denies: Chest pain, Palpitations, Dyspnea, Syncope, Dizziness, Lightheaded, Edema Respiratory: No symptoms reported Gastrointestinal: No symptoms reported Genitourinary: No symptoms reported Musculoskeletal: No symptoms reported Skin: No symptoms reported Hematologic/Lymphatic: No symptoms reported Neurological/Psychological: Headaches. denies: Anxiety, Weakness, Numbness, Tingling Physical Exam - Vital signs Vitals: Temp Pulse Resp BP Pulse Ox 98.9 F 73 16 118/74 99 06/14/18 14:06/14/18 14:06/14/18 14:06/14/18 14:06/14/18 14:31 Interpretation: Normal - General General appearance: Appears well, Alert In distress: None - HEENT Head: Normocephalic, Atraumatic Eyes: Normal Conjunctiva: Normal Cornea: Normal Extraocular movements intact: Yes Pupils: PERRL Ears: Normal External canal: Normal Tympanic membrane: Normal Nasal: Normal Mouth/Lips: Normal Mucous membranes: Normal Pharynx: Normal Neck: Normal - Respiratory Respiratory status: No respiratory distress Breath sounds: Normal - Cardiovascular Rhythm: Regular Heart sounds: Normal auscultation Murmur: No Friction rub: No Gallop: None auscultated Pulses: Normal: Radial, Dorsalis pedis Normal capillary refill: Yes - Abdominal Inspection: Normal Distension: No distension Bowel sounds: Normal Tenderness: Nontender - Back Back: Normal, Nontender - Neurological Neuro grossly intact: Yes Cognition: Normal Orientation: AAOx4 Speech: Normal Cranial nerves: Normal Cerebellar coordination: Normal Motor strength normal: LUE, RUE, LLE, RLE Additional motor exam normals: Equal medical collections specialist. No: Involuntary movements, Weakness Sensory: Normal Knee - Reflex grade: 2 = Normal Ankle - Reflex grade: 2 = Normal - Psychological Associated symptoms: Normal affect, Normal mood - Skin Skin Temperature: Warm Skin Moisture: Dry Course - Re-evaluation Re-evalutation: 06/14/18 19:25 Upon reassessment, patient voices no complaints. Patient informed of normal lab results. Chart review completed for weight comparison, no weight change appreciated from last visit in March 2018. - Vital Signs Vital signs: Temp Pulse Resp BP Pulse Ox 98.9 F 73 16 118/74 99 06/14/18 14:06/14/18 14:06/14/18 14:06/14/18 14:06/14/18 14:31 - Laboratory Result Diagrams: 06/14/18 16:45 06/14/18 16:45 Laboratory results interpreted by me: 06/14/18 06/14/18 06/14/18 16:45 16:45 16:45 RBC 5.65 H MCV 66 L MCH 21.2 L RDW 16.4 H Chloride 108 H Urine Protein >=500 H Urine Blood LARGE H Urine Urobilinogen 2.0 H Urine Ascorbic Acid 40 H Discharge - Discharge Clinical Impression: Weight loss Head ache Qualifiers: Headache type: unspecified Headache chronicity pattern: episodic headache Intractability: not intractable Qualified Code(s): R51 - Headache Condition: Stable Disposition: HOME, SELF-CARE Additional Instructions: Normal Exam and Workup At this time, your examination and workup show no significant abnormality. No significant abnormal physical findings are noted. All laboratory studies that were ordered show no significant abnormality. Although your examination and all studies that were ordered showed no significant abnormal finding, there are no examinations and no studies that are 100% accurate. There is always the possibility that some abnormality could exist and not be detected with physical examination or within the limits and capabilities of laboratory and other studies. You should return or follow up with primary care provider as you were instructed on your visit today for further evaluation if your symptoms do not resolve. Forms: Return to Work Referrals: [facility] [Provider Group] - Follow up as needed [facility] [Provider Group] - Follow up as needed
== END 2018-06-14 19:20 | disposition home or self-care (01) ==
LOC: ER 14:25
DX: R51 Headache (principal); R63.4 Abnormal weight loss; I10 Essential (primary) hypertension; J45.909 Unspecified asthma, uncomplicated; F17.210 Nicotine dependence, cigarettes, uncomplicated; Z88.0 Allergy status to penicillin
CPT/HCPCS: 36415; 80053; 81001; 81025; 85025; 99284

== ENCOUNTER 2018-08-30 12:30 | Emergency (ER) | payer SELFPAY ==
--- NOTE | 2018-08-30 13:27 | ER Document Report ---
ED Medical Screen (RME) - General Chief Complaint: Chest Pain Stated Complaint: HEAD/BACK/STOMACH PAIN, CHEST PAIN Time Seen by Provider: 08/30/18 13:23 Notes: 33 years old female presents stating that she has been losing weight over a year , having abdominal pain nausea. In reality I could not get any proper history from the patient. She assumes that I know everything about her. The significant other who was with her was very disrespectful, when I tried to explain that losing weight over a year need to be seen by a at least country fitting room associate. He turned very rude to me and said this is an emergency that we need to take care of it. TRAVEL OUTSIDE OF THE [place] IN LAST 30 DAYS: No - Related Data Allergies/Adverse Reactions: amoxicillin Allergy (Verified 08/30/18 12:34) Penicillins Allergy (Verified 08/30/18 12:34) Past Medical History - Social History Chew tobacco use (# tins/day): No Frequency of alcohol use: None Drug Abuse: None - Past Medical History Cardiac Medical History: Reports: Hx Hypertension - Patient does not take medications for her blood pressure problems Pulmonary Medical History: Reports: Hx Asthma, Hx Bronchitis Renal/ Medical History: Denies: Hx Peritoneal Dialysis - Immunizations Immunizations up to date: No Hx Diphtheria, Pertussis, Tetanus Vaccination: Yes - 08/02/2011 Physical Exam - Vital signs Vitals: Temp Pulse Resp BP Pulse Ox 98.9 F 88 14 128/81 H 100 08/30/18 12:47 08/30/18 12:47 08/30/18 12:47 08/30/18 12:47 08/30/18 12:47 Course - Vital Signs Vital signs: Temp Pulse Resp BP Pulse Ox 98.9 F 88 14 128/81 H 100 08/30/18 12:47 08/30/18 12:47 08/30/18 12:47 08/30/18 12:47 08/30/18 12:47
[2018-08-30 14:12] LABS: ABSOLUTE EOSINOPHILS # (AUTO) 0.1 10^3/uL (0.0-0.6); ABSOLUTE LYMPHOCYTES (AUTO) 2.2 10^3/uL (0.5-4.7); ABSOLUTE MONOCYTES (AUTO) 1.2 10^3/uL (0.1-1.4); BASOPHILS % (AUTO) 0.4 % (0-2); EOSINOPHILS % (AUTO) 0.8 % (0-6); HEMATOCRIT 35.6 % (36.0-47.0); HEMOGLOBIN 11.5 g/dL (12.0-15.5); LYMPHOCYTES % (AUTO) 23.3 % (13-45); MEAN CORPUSCULAR HEMOGLOBIN 21.3 pg (27.0-33.4); MEAN CORPUSCULAR HGB CONC 32.2 g/dL (32.0-36.0); MEAN CORPUSCULAR VOLUME 66 fl (80-97); MONOCYTES % (AUTO) 12.3 % (3-13); PLATELET COUNT 224 10^3/uL (150-450); RED BLOOD COUNT 5.38 10^6/uL (3.72-5.28); RED CELL DISTRIBUTION WIDTH 15.6 % (11.5-14.0); SEGMENTED NEUTROPHILS % (AUTO) 63.2 % (42-78); TOTAL CELLS COUNTED % (AUTO) 100 %; WHITE BLOOD COUNT 9.6 10^3/uL (4.0-10.5)
[2018-08-30 14:15] LABS: ALANINE AMINOTRANSFERASE 16 U/L (9-52); ALBUMIN 3.6 g/dL (3.5-5.0); ALKALINE PHOSPHATASE 54 U/L (38-126); ANION GAP 7 (5-19); ASPARTATE AMINO TRANSFERASE 17 U/L (14-36); BILIRUBIN,DIRECT 0.1 mg/dL (0.0-0.4); BILIRUBIN,TOTAL 0.5 mg/dL (0.2-1.3); BLOOD UREA NITROGEN 8 mg/dL (7-20); CARBON DIOXIDE 30 mmol/L (22-30); CHLORIDE 105 mmol/L (98-107); GLUCOSE 80 mg/dL (75-110); POTASSIUM 3.9 mmol/L (3.6-5.0); SODIUM 141.5 mmol/L (137-145); TOTAL PROTEIN 6.5 g/dL (6.3-8.2)
--- NOTE | 2018-08-30 15:20 | ER Document Report ---
ED General - General Chief Complaint: Chest Pain Stated Complaint: HEAD/BACK/STOMACH PAIN, CHEST PAIN Time Seen by Provider: 08/30/18 13:23 Notes: 33-year-old female presents with multiple chronic complaints including weight loss unintended, chronic back pain, going on for several months. She also complains that she been having upper abdominal pain with nausea each time she eats for about a week. She says that today it that is better. Patient denies any current abdominal pain vaginal bleeding or discharge. She says her menstrual period comes for times a year and she used to be on iron but did not feel good so she stopped. TRAVEL OUTSIDE OF THE [place] IN LAST 30 DAYS: No - Related Data Allergies/Adverse Reactions: amoxicillin Allergy (Verified 08/30/18 12:34) Penicillins Allergy (Verified 08/30/18 12:34) Past Medical History - Social History Smoking Status: Current Every Day Smoker Chew tobacco use (# tins/day): No Smoking Education Provided: Yes - The patient ED visit today was directly related to their abuse of tobacco. Frequency of alcohol use: None Drug Abuse: None Family History: None, Hypertension. denies: Arthritis, CAD, COPD, CVA, Hyperlipidemia, Malignancy, Thyroid Disfunction Patient has suicidal ideation: No Patient has homicidal ideation: No - Past Medical History Cardiac Medical History: Reports: Hx Hypertension - Patient does not take medications for her blood pressure problems Pulmonary Medical History: Reports: Hx Asthma, Hx Bronchitis Renal/ Medical History: Denies: Hx Peritoneal Dialysis - Immunizations Immunizations up to date: No Hx Diphtheria, Pertussis, Tetanus Vaccination: Yes - 08/02/2011 Review of Systems - Review of Systems Notes: REVIEW OF SYSTEMS GEN: Denies fever, chills, positive weight loss ENT: Denies sore throat, nasal discharge, ear pain EYES: Denies blurry vision, eye pain, discharge CV: Denies chest pain, palpitations, edema RESP: Denies cough, shortness of breath, wheezing GI: Recent history of upper abdominal pain and nausea MSK: Denies joint pain/swelling, edema, SKIN: Denies rash, skin lesions LYMPH: Denies swollen glands/lymph nodes NEURO: Remittent headache for a week, denies focal weakness or numbness, dizziness PSYCH: Denies depression, suicidal or homicidal ideation PHYSICAL EXAMINATION General: No acute distress, well-nourished Head: Atraumatic, normocephalic ENT: Mouth normal, oropharynx moist, no exudates or tonsillar enlargement Eyes: Conjunctiva normal, pupils equal, lids normal Neck: No JVD, supple, no guarding CVS: Normal rate, regular rhythm, no murmurs Resp: No resp distress, equal and normal breath sounds bilaterally GI: Nondistended, soft, no tenderness to palpation, no rebound or guarding Ext: No deformities, no edema, normal range of motion in upper and lower ext Back: No CVA or midline TTP Skin: No rash, warm Lymphatic: No lymphadeopathy noted Neuro: Awake, alert. Face symmetric. GCS 15. Physical Exam - Vital signs Vitals: Temp Pulse Resp BP Pulse Ox 98.9 F 88 14 128/81 H 100 08/30/18 12:47 08/30/18 12:47 08/30/18 12:47 08/30/18 12:47 08/30/18 12:47 Course - Re-evaluation Re-evalutation: 08/30/18 15:17 Patient presents with multiple subacute complaints including weight loss irregular periods back aches and headache. Her neurologic exam is normal her abdominal exam shows only mild epigastric tenderness. She has a history of noncompliance with iron for anemia which is likely due to heavy and irregular periods. I do not see any acute cause of abdominal pain or back pain or headache on my physical examination. She truly just wants to know if she is . Her labs are normal except for a mild anemia. 08/30/18 22:40 negative. Discharge home in stable condition. Recommended primary care follow-up for various complaints and chronic issues. Insert discharge - Vital Signs Vital signs: Temp Pulse Resp BP Pulse Ox 98.7 F 75 18 117/88 H 100 08/30/18 16:11 08/30/18 16:11 08/30/18 16:11 08/30/18 16:11 08/30/18 16:11 - Laboratory Result Diagrams: 08/30/18 13:39 08/30/18 13:39 Laboratory results interpreted by me: 08/30/18 08/30/18 13:39 15:16 RBC 5.38 H Hgb 11.5 L Hct 35.6 L MCV 66 L MCH 21.3 L RDW 15.6 H Urine Urobilinogen 4.0 H - Diagnostic Test Radiology reviewed: Reports reviewed Discharge - Discharge Clinical Impression: Anemia Qualifiers: Anemia type: unspecified type Qualified Code(s): D64.9 - Anemia, unspecified Condition: Good Disposition: HOME, SELF-CARE Instructions: Reflux Disease (GERD) ([facility]) Additional Instructions: As we discussed, he will need to be referred to primary care for management of your ongoing problems. Also I would like you to see a technical applications specialist because your vomiting and weight loss are concerning and you may need an endoscopy. Begin taking iron [id number] and resume taking your antacid medicines. Prescriptions: Omeprazole Magnesium [Prilosec Otc] 20 mg PO BID #30 tablet.dr Forms: Return to Work
[2018-08-30 15:25] LABS: APPEARANCE,URINE CLEAR; BILIRUBIN,URINE NEGATIVE (NEGATIVE); COLOR,URINE YELLOW; GLUCOSE, URINE NEGATIVE (NEGATIVE); KETONES,URINE NEGATIVE (NEGATIVE); LEUKOCYTE ESTERASE,URINE NEGATIVE (NEGATIVE); NITRITE,URINE NEGATIVE (NEGATIVE); PROTEIN,URINE NEGATIVE (NEGATIVE); URINE SPECIFIC GRAVITY 1.017
[2018-08-30 16:14] VITALS: BP 117/88
--- NOTE | 2018-08-30 21:54 | EKG REPORT ---
SEVERITY:- NORMAL ECG - SINUS RHYTHM : Confirmed by: Dora Hidalgo MD 30-Aug-2018 21:53:36
== END 2018-08-30 16:15 | disposition home or self-care (01) ==
LOC: ER 12:30
DX: D64.9 Anemia, unspecified (principal); T45.4X6A Underdosing of iron and its compounds, initial encounter; Z91.128 Patient's intentional underdosing of medication regimen for other reason; Z91.14 Patient's other noncompliance with medication regimen; R10.10 Upper abdominal pain, unspecified; R63.4 Abnormal weight loss; R51 Headache; N92.6 Irregular menstruation, unspecified; M54.9 Dorsalgia, unspecified; G89.29 Other chronic pain; R11.0 Nausea; I10 Essential (primary) hypertension; J45.909 Unspecified asthma, uncomplicated; F17.200 Nicotine dependence, unspecified, uncomplicated; Z88.0 Allergy status to penicillin
CPT/HCPCS: 36415; 80053; 81001; 81025; 85025; 93005; 93010; 99284

== ENCOUNTER 2018-12-07 12:19 | Emergency (ER) | payer SELFPAY ==
[2018-12-07 12:42] VITALS: BP 138/94
[2018-12-07] MEDS ORDERED: OXYCODONE-ACETAMINOPHEN 5-325 MG TABLET PO ONE (13:09)
[2018-12-07] MEDS ORDERED: IBUPROFEN 600 MG TABLET PO ONE (13:09)
[2018-12-07] MEDS ORDERED: CLINDAMYCIN HCL 150 MG CAPSULE PO ONE (13:10)
[2018-12-07] MEDS ORDERED: LIDOCAINE 2% VISCOUS SOLN 20 ML UDCUP PO ONE (13:10)
--- NOTE | 2018-12-07 13:17 | ER Document Report ---
HPI - HPI Time Seen by Provider: 12/07/18 13:02 Pain Level: 4 Notes: Patient is a 33-year-old female who presents to the emergency department with complaints of dental pain. Patient reports dental pain over the last several weeks. Patient has been unable to see her dentist for the last few years. Patient denies any fevers. - CONSTITUTIONAL Constitutional: DENIES: Fever, Chills - REPRODUCTIVE Reproductive: DENIES: : Past Medical History - General Information source: Patient - Social History Smoking Status: Current Every Day Smoker Frequency of alcohol use: Social Drug Abuse: None Family History: None, Hypertension. denies: Arthritis, CAD, COPD, CVA, Hyperlipidemia, Malignancy, Thyroid Disfunction Patient has suicidal ideation: No Patient has homicidal ideation: No - Past Medical History Cardiac Medical History: Reports: Hx Hypertension - Patient does not take medications for her blood pressure problems Pulmonary Medical History: Reports: Hx Asthma, Hx Bronchitis Renal/ Medical History: Denies: Hx Peritoneal Dialysis - Immunizations Immunizations up to date: No Hx Diphtheria, Pertussis, Tetanus Vaccination: Yes - 08/02/2011 Vertical Provider Document - CONSTITUTIONAL Notes: PHYSICAL EXAMINATION: GENERAL: Well-appearing, well-nourished and in no acute distress. HEAD: Atraumatic, normocephalic. EYES: Pupils equal round extraocular movements intact, conjunctiva are normal. ENT: Nares patent, poor dentition noted, fractured teeth to right upper and lower. Mild surrounding erythema, no drainable abscess. NECK: Normal range of motion LUNGS: No respiratory distress Musculoskeletal: Normal range of motion NEUROLOGICAL: Normal speech, normal gait. PSYCH: Normal mood, normal affect. SKIN: Warm, Dry, normal turgor, no rashes or lesions noted. - INFECTION CONTROL TRAVEL OUTSIDE OF THE [place] IN LAST 30 DAYS: No Course - Re-evaluation Re-evalutation: Patient with very poor dentition and multiple fractured teeth. Patient will be placed on antibiotics and encouraged [facility] Patient verbalizes understanding and agreement with plan. - Vital Signs Vital signs: Temp Pulse Resp BP Pulse Ox 57 L 18 138/94 H 100 12/07/18 12:39 12/07/18 12:39 12/07/18 12:39 12/07/18 12:39 Discharge - Discharge Clinical Impression: Pain, dental Condition: Stable Disposition: HOME, SELF-CARE Additional Instructions: [facility]. Their phone number is [phone]. They do extractions only. Please take antibiotics as prescribed. Take ibuprofen 600 mg every 6 hours. Prescriptions: Clindamycin HCl 300 mg PO TID #30 capsule
== END 2018-12-07 13:29 | disposition home or self-care (01) ==
LOC: ER 12:19
DX: K08.89 Other specified disorders of teeth and supporting structures (principal); I10 Essential (primary) hypertension; J45.909 Unspecified asthma, uncomplicated; F17.200 Nicotine dependence, unspecified, uncomplicated
CPT/HCPCS: 99282; J3490

== ENCOUNTER 2018-12-12 06:34 | Emergency (ER) | payer SELFPAY ==
[2018-12-12] MEDS ORDERED: IBUPROFEN 600 MG TABLET PO ONE (07:36)
[2018-12-12] MEDS ORDERED: DEXAMETHASONE 4 MG TABLET PO ONE (07:36)
--- NOTE | 2018-12-12 09:19 | ER Document Report ---
HPI - HPI Patient complains to provider of: sore throat Time Seen by Provider: 12/12/18 07:11 Pain Level: 4 Context: Patient is a 33-year-old female presents to the emergency department for generalized sore throat and cervical lymphadenopathy for the last 3 days. Patient is denying a fever, cough, runny nose, congestion, nausea, vomiting, diarrhea. Patient states she was to this facility a few days ago for generalized toothache. States she was placed on clindamycin and has been taking as prescribed. Past medical history: None Medications: Clindamycin Allergies: Penicillin Last menstrual period 12/04/2018 - EENT EENT: REPORTS: Sore Throat, Ear Pain - REPRODUCTIVE Reproductive: DENIES: : Past Medical History - General Information source: Patient - Social History Smoking Status: Current Some Day Smoker Chew tobacco use (# tins/day): No Frequency of alcohol use: None Drug Abuse: None Family History: None, Hypertension. denies: Arthritis, CAD, COPD, CVA, Hyperlipidemia, Malignancy, Thyroid Disfunction Patient has suicidal ideation: No Patient has homicidal ideation: No - Past Medical History Cardiac Medical History: Reports: Hx Hypertension - Patient does not take medications for her blood pressure problems Pulmonary Medical History: Reports: Hx Asthma, Hx Bronchitis Renal/ Medical History: Denies: Hx Peritoneal Dialysis - Immunizations Immunizations up to date: No Hx Diphtheria, Pertussis, Tetanus Vaccination: Yes - 08/02/2011 Vertical Provider Document - CONSTITUTIONAL Agree With Documented VS: Yes Notes: GENERAL: Alert, interacts well. No acute distress. HEAD: Normocephalic, atraumatic. EYES: Pupils equal, round, and reactive to light. Extraocular movements intact. ENT: Oral mucosa moist, tongue midline. Nares patent, TM's intact, nonerythematous, nonbulging bilaterally. Pharynx erythematous with exudate noted bilateral tonsils. Tonsils +2 bilaterally and symmetrical. No palatal petechiae noted. no Sebastián's angina noted. Patient has very poor dentition throughout, no obvious fluctuance or indurated areas noted to upper or lower gumline. NECK: Full range of motion. Supple. Trachea midline. Bilateral cervical lymphadenopathy appreciated LUNGS: Clear to auscultation bilaterally, no wheezes, rales, or rhonchi. No respiratory distress. HEART: Regular rate and rhythm. No murmur ABDOMEN: Soft, non-tender. Non-distended. Bowel sounds present in all 4 quadrants. EXTREMITIES: Moves all 4 extremities spontaneously. No edema, normal radial and dorsalis pedis pulses bilaterally. No cyanosis. BACK: no cervical, thoracic, lumbar midline tenderness. No saddle anesthesia, normal distal neurovascular exam. NEUROLOGICAL: Alert and oriented x3. Normal speech. cranial nerves II through XII grossly intact. PSYCH: Normal affect, normal mood. SKIN: Warm, dry, normal turgor. No rashes or lesions noted. - INFECTION CONTROL TRAVEL OUTSIDE OF THE [place] IN LAST 30 DAYS: No Course - Re-evaluation Re-evalutation: 12/12/18 09:17 Patient has refused the rapid strep test multiple times from nurse and also refuses from myself. Discussed that if it is a bacterial pharyngitis the clindamycin that she is on should be able to treat it. Discussed symptomatic relief at home and return precautions. Patient stable for discharge - Vital Signs Vital signs: Temp Pulse Resp BP Pulse Ox 99.4 F 80 14 123/73 100 12/12/18 06:45 12/12/18 06:45 12/12/18 06:45 12/12/18 06:45 12/12/18 06:45 Discharge - Discharge Clinical Impression: Pharyngitis Qualifiers: Pharyngitis/tonsillitis etiology: unspecified etiology Qualified Code(s): J02.9 - Acute pharyngitis, unspecified Condition: Stable Disposition: HOME, SELF-CARE Instructions: Sore Throat ([facility]) Additional Instructions: As we discussed you have been seen and treated in the emergency department for your generalized sore throat. We were unable to determine if this is a bacterial infection. If it is a bacterial infection the clindamycin that you have already been prescribed we will treat it. If it is viral then you should treat the symptoms at home with [id number] Tylenol, Motrin, lozenges, salt water gargles, and stay well-hydrated. Please follow-up with your primary care provider in the next 24-48 hours. Please return to the emergency room for any other concerning symptoms.
[2018-12-12 09:20] VITALS: BP 134/79
== END 2018-12-12 09:24 | disposition home or self-care (01) ==
LOC: ER 06:34
DX: J02.9 Acute pharyngitis, unspecified (principal); R59.0 Localized enlarged lymph nodes; K08.89 Other specified disorders of teeth and supporting structures; H92.09 Otalgia, unspecified ear; I10 Essential (primary) hypertension; J45.909 Unspecified asthma, uncomplicated; F17.200 Nicotine dependence, unspecified, uncomplicated
CPT/HCPCS: 99282

== ENCOUNTER 2019-01-13 10:24 | Emergency (ER) | payer SELFPAY ==
[2019-01-13] MEDS ORDERED: ONDANSETRON 4 MG TAB.RAPDIS PO ONE (11:00)
[2019-01-13] MEDS ORDERED: OXYCODONE-ACETAMINOPHEN 5-325 MG TABLET PO ONE (11:00)
[2019-01-13] MEDS ORDERED: CLINDAMYCIN 600 MG/D5W RTU 600 MG/50 ML RTUPB IV ONE ×2 (11:42→11:45)
--- NOTE | 2019-01-13 11:49 | ER Document Report ---
ED General - General Chief Complaint: Toothache Stated Complaint: MOUTH PAIN/SWELLING Time Seen by Provider: 01/13/19 10:50 Primary Care Provider: Ross[facility] [Provider Group] - 01/19/19 1:15 pm Mode of Arrival: Ambulatory Information source: Patient Notes: Patient presents emergency department with complaints of right-sided dental pain for the past 2 days reports she cannot cannot sleep hurts when she talks. She reports jaw started swelling proximate 2 days ago. She does not have dental insurance. She denies other symptoms such as fever vomiting diarrhea though she does report she feels nauseated. Patient does have a ride home. Patient was here last month for dental pain but it was a different tooth. TRAVEL OUTSIDE OF THE [place] IN LAST 30 DAYS: No - HPI Onset: Other - 2 Days Onset/Duration: Persistent Quality of pain: Achy, Throbbing Severity: Severe Pain Level: 5 Associated symptoms: Nausea Exacerbated by: Food Relieved by: Denies Similar symptoms previously: No Recently seen / treated by doctor: No - Related Data Allergies/Adverse Reactions: amoxicillin Allergy (Verified 01/13/19 10:26) Penicillins Allergy (Verified 01/13/19 10:26) Past Medical History - General Information source: Patient Last Menstrual Period: November - Social History Smoking Status: Current Every Day Smoker Cigarette use (# per day): Yes Frequency of alcohol use: Occasional Drug Abuse: None Family History: None, Hypertension. denies: Arthritis, CAD, COPD, CVA, Hyperlipidemia, Malignancy, Thyroid Disfunction Patient has suicidal ideation: No Patient has homicidal ideation: No - Past Medical History Cardiac Medical History: Reports: Hx Hypertension - Patient does not take medications for her blood pressure problems Pulmonary Medical History: Reports: Hx Asthma, Hx Bronchitis Renal/ Medical History: Denies: Hx Peritoneal Dialysis Surgical Hx: Negative - Immunizations Immunizations up to date: No Hx Diphtheria, Pertussis, Tetanus Vaccination: Yes - 08/02/2011 Review of Systems - Review of Systems Notes: Review HPI for review of systems., All other systems negative Physical Exam - Vital signs Vitals: Temp Pulse Resp BP Pulse Ox 98.8 F 71 16 115/76 100 01/13/19 10:30 01/13/19 10:30 01/13/19 10:30 01/13/19 10:30 01/13/19 10:30 - Notes Notes: PHYSICAL EXAMINATION: GENERAL: Looks like she is hurting HEAD: Atraumatic, normocephalic. EYES: Pupils equal round, extraocular movements intact, ENT: nares patent, oropharynx clear without exudates. Moist mucous membranes. NECK: Normal range of motion, supple without lymphadenopathy LUNGS: CTAB and equal. No wheezes rales or rhonchi. HEART: Regular rate and rhythm without murmurs ABDOMEN: Soft, no tenderness. No guarding, no rebound EXTREMITIES: Normal range of motion, NEUROLOGICAL: Cranial nerves grossly intact. Normal sensory/motor exams. PSYCH: Normal mood, normal affect. SKIN: Warm, Dry, normal turgor, no rashes or lesions noted - HEENT Teeth diagram: 1 - Patient complains of pain no erythema noted right-sided left jaw swelling noted. Patient speaks in clear voice opens mouth wide but reports hurts when she opens her mouth wide. No ludwigs. No trismus Course - Re-evaluation Re-evalutation: 01/13/19 11:47 Contacted the [facility] for an appointment for the patient and obtained an appointment for her next week. I will treat with IV clindamycin he re pain medication and discharge her home. Dictation of this chart was performed using voice recognition software; therefore, there may be some unintended grammatical errors. 01/13/19 12:35 - Vital Signs Vital signs: Temp Pulse Resp BP Pulse Ox 98.8 F 71 16 115/76 100 01/13/19 10:30 01/13/19 10:30 01/13/19 10:30 01/13/19 10:30 01/13/19 10:30 Discharge - Discharge Clinical Impression: Dental abscess Condition: Stable Disposition: HOME, SELF-CARE Instructions: Abscess ([facility]), Clindamycin ([facility]), Oral Narcotic Medication ([facility]), Toothache ([facility]) Additional Instructions: *You have been evaluated for dental pain abscess *Take medications as prescribed *Follow up with the dental [facility] January 19 at 1:15 PM in the afternoon. Bring your ID card, social security card, and proof of income. The dental clinic is located at [address] [place] [address] in [place]. *Return to ED for worsening condition, changes, needs, able to open your mouth increased swelling and pain Prescriptions: Clindamycin HCl [Cleocin 300 mg Capsule] 300 mg PO TID #15 capsule Oxycodone HCl/Acetaminophen [Percocet 5-325 mg Tablet] 1 tab PO Q8H PRN #15 tab PRN Reason: Forms: Return to Work Referrals: [facility] [Provider Group] - 01/19/19 1:15 pm
[2019-01-13] MEDS ORDERED: CLINDAMYCIN PHOSPHATE 450 MG in DEXTROSE 5%-WATER 50 ML IV SCH (12:00)
[2019-01-13 12:59] VITALS: BP 116/72
== END 2019-01-13 13:02 | disposition home or self-care (01) ==
LOC: ER 10:24
DX: K04.7 Periapical abscess without sinus (principal); R11.0 Nausea; F17.210 Nicotine dependence, cigarettes, uncomplicated; I10 Essential (primary) hypertension; Z88.0 Allergy status to penicillin
CPT/HCPCS: 99283; 96365; 81025; S0119

== ENCOUNTER 2019-01-26 20:39 | Emergency (ER) | payer SELFPAY ==
[2019-01-26] MEDS ORDERED: OXYCODONE-ACETAMINOPHEN 5-325 MG TABLET PO ONE (22:44)
[2019-01-26] MEDS ORDERED: PROMETHAZINE HCL 25 MG TABLET PO ONE (22:44)
[2019-01-26] MEDS ORDERED: HYDROCODONE/ACETAMINOPHEN 5-325 MG (6 TAB/ER DISP) PO PRN (22:44)
[2019-01-26] MEDS ORDERED: ONDANSETRON ODT 4 MG TAB (6 TAB/ER DISP) PO PRN (22:44)
--- NOTE | 2019-01-26 22:47 | ER Document Report ---
HPI - HPI Time Seen by Provider: 01/26/19 22:38 Pain Level: 4 Context: Patient is a 33-year-old female that comes to the emergency department for chief complaint of mouth pain. She states she had 2 right lower molar directed earlier today, sent home with ibuprofen, she cannot sleep is making her slightly nauseated she reports. She denies bleeding, difficulty swallowing, increased swelling, fever, or any other locations of pain. - REPRODUCTIVE Reproductive: DENIES: : Past Medical History - General Information source: Patient - Social History Smoking Status: Never Smoker Drug Abuse: None Lives with: Family Family History: None, Hypertension. denies: Arthritis, CAD, COPD, CVA, Hyperlipidemia, Malignancy, Thyroid Disfunction Pulmonary Medical History: Reports: Hx Asthma, Hx Bronchitis Renal/ Medical History: Denies: Hx Peritoneal Dialysis - Immunizations Immunizations up to date: No Hx Diphtheria, Pertussis, Tetanus Vaccination: Yes - 08/02/2011 Vertical Provider Document - CONSTITUTIONAL General Appearance: WD/WN, No Apparent Distress - INFECTION CONTROL TRAVEL OUTSIDE OF THE [place] IN LAST 30 DAYS: No - HEENT HEENT: Atraumatic, Normocephalic, PERRLA. negative: Conjuctival Injection, Pharyngeal Exudate, Pharyngeal Tenderness, Pharyngeal Erythema, Tympanic Membran e Red, Tympanic Membrane Bulging Mouth Diagram: 1 - Recently extracted teeth site with what appears to be dried blood and a small amount and possibly sutures. There is no current bleeding, no purulent drainage, no significant swelling of the gumline, no noted abnormal tenderness. Unremarkable oropharyngeal exam otherwise except for multiple dental caries. - NECK Neck: Normal Inspection - RESPIRATORY Respiratory: Breath Sounds Normal, No Respiratory Distress - CARDIOVASCULAR Cardiovascular: Regular Rate, Regular Rhythm - GI/ABDOMEN Gastrointestinal: Abdomen Soft, Abdomen Non-Tender - BACK Back: Normal Inspection - MUSCULOSKELETAL/EXTREMETIES Musculoskeletal/Extremeties: MAEW, FROM, Non-Tender - NEURO Level of Consciousness: Awake, Alert, Appropriate - DERM Integumentary: Warm, Dry, No Rash Course - Re-evaluation Re-evalutation: Patient is well-appearing. There is no adenopathy, facial swelling, signs of bleeding, airway compromise, or evidence of complication. Appears to be simple non-complicated dental extraction with pain afterwards. Patient has been provided with ibuprofen for pain. I did provide her with a dose of pain medication and some [place] to go home with in a pack. Discussed expectations, follow-up, and return precautions with patient. Patient states understanding and agreement. - Vital Signs Vital signs: Temp Pulse Resp BP Pulse Ox 97.5 F 57 L 16 137/79 H 100 01/26/19 20:59 01/26/19 20:59 01/26/19 20:59 01/26/19 20:59 01/26/19 20:59 Discharge - Discharge Clinical Impression: Pain, dental Condition: Stable Disposition: HOME, SELF-CARE Instructions: Oral Narcotic Medication ([facility]) Additional Instructions: I recommend that you take the provided medication as directed as needed only for severe pain and to help you sleep. Otherwise take the ibuprofen provided for you today. Follow-up with the clinic for additional evaluation and management of your teeth. Return if you worsen including swelling, heavy bleeding, fever/chills, vomiting, or any other concerning symptoms. Forms: Return to Work
[2019-01-26 23:01] VITALS: BP 157/88
== END 2019-01-26 23:02 | disposition home or self-care (01) ==
LOC: ER 20:39
DX: K02.9 Dental caries, unspecified (principal); K08.89 Other specified disorders of teeth and supporting structures; R11.0 Nausea; J45.909 Unspecified asthma, uncomplicated; Z98.890 Other specified postprocedural states
CPT/HCPCS: 99282

== ENCOUNTER 2019-04-09 05:00 | Emergency (ER) | payer SELFPAY ==
[2019-04-09 05:11] VITALS: BP 146/100
[2019-04-09] MEDS ORDERED: ACETAMINOPHEN 325 MG TABLET PO ONE (06:55)
[2019-04-09] MEDS ORDERED: ALBUTEROL SULFATE 0.083% NEB 2.5 MG/3 ML AMPUL NEB ONE (07:01)
--- NOTE | 2019-04-09 07:05 | ER Document Report ---
ED General - General Chief Complaint: Headache Stated Complaint: HEADACHE,DIFFICULTY BREATHING,CHEST PAIN Time Seen by Provider: 04/09/19 06:47 TRAVEL OUTSIDE OF THE [place] IN LAST 30 DAYS: No - HPI Notes: Patient is a 33-year-old female that presents to the emergency department for chief complaint of headache, cough, low back pain and concern for . Patient states for the last 3 days she has had a headache in her bilateral forehead. She reports associated photophobia. She describes as a dull achy sensation that was gradual in onset. She has not taken any medication for her pain. She denies any relieving factors. She denies any associated vision changes numbness, weakness and neck pain/stiffness. She does states she has had migraines in the past but this is lasting longer. She reports she has a "phobia of medication which is why she has not taken anything at home. Patient also reports nonproductive cough with some shortness of breath and pain with coughing over the last 3 days. She states she used her albuterol inhaler last night which gave her temporary and minimal relief. Patient also describing achy pain in her lower back with no aggravating or relieving factors. Her low back pain is nonradiating. She denies trauma to her low back. She denies any associated nausea/vomiting, dysuria, urinary frequency. Patient states she might be but has not taken a test at home. Past Medical History: Hypertension, asthma Past Surgical History: Negative Social History: Daily tobacco. Denies alcohol and drug use Family History: Reviewed and noncontributory for presenting illness Allergies: Reviewed, see documented allergy list. REVIEW OF SYSTEMS: CONSTITUTIONAL : No fever No chills No diaphoresis No recent illness EENT: No vision changes congestion sore throat CARDIOVASCULAR: No chest pain No palpitations RESPIRATORY: shortness of breath cough No difficulty breathing GASTROINTESTINAL: No abdominal pain No nausea No vomiting No diarrhea GENITOURINARY: No dysuria No hematuria No difficulty urinating MUSCULOSKELETAL: back pain No leg pain No arm pain SKIN: No rashes No lesions LYMPHATIC: No swollen, enlarged glands. NEUROLOGICAL: No lightheadedness headache No weakness No paresthesias PSYCHIATRIC: No anxiety No depression PHYSICAL EXAMINATION: Vital signs reviewed, nursing noted reviewed. GENERAL: Well-appearing, well-nourished and in no acute distress. HEAD: Atraumatic, normocephalic. EYES: Eyes appear normal, extraocular movements intact, sclera anicteric, conjunctiva are normal. ENT: nares patent, oropharynx clear without exudates. Moist mucous membranes. NECK: Normal range of motion, supple without lymphadenopathy LUNGS: Breath sounds bibasilar wheezing, no accessory muscle use or rhonchi. Mild tenderness to palpation of diffuse anterior chest wall with no flail segments or deformity. HEART: Regular rate and rhythm without murmurs ABDOMEN: Soft, nontender, normoactive bowel sounds. No rebound, guarding, or rigidity. No masses appreciated. EXTREMITIES: Nontender, good range of motion, no pitting or edema. Back: No midline thoracic or lumbar tenderness, normal range of motion, no focal tenderness in the paraspinal region of the thoracic or lumbar spine. NEUROLOGICAL: No focal neurological deficits. Moves all extremities spontaneously Motor and sensory grossly intact on exam. PSYCH: Normal mood, normal affect. SKIN: Warm, Dry, normal turgor, no rashes or lesions noted on exposed skin - Related Data Allergies/Adverse Reactions: amoxicillin Allergy (Verified 01/13/19 10:26) Penicillins Allergy (Verified 01/13/19 10:26) Past Medical History - Social History Smoking Status: Current Every Day Smoker Family History: None, Hypertension. denies: Arthritis, CAD, COPD, CVA, Hyperlipidemia, Malignancy, Thyroid Disfunction - Past Medical History Cardiac Medical History: Reports: Hx Hypertension - Patient does not take medications for her blood pressure problems Pulmonary Medical History: Reports: Hx Asthma, Hx Bronchitis Renal/ Medical History: Denies: Hx Peritoneal Dialysis - Immunizations Immunizations up to date: No Hx Diphtheria, Pertussis, Tetanus Vaccination: Yes - 08/02/2011 Physical Exam - Vital signs Vitals: Temp Pulse Resp BP Pulse Ox 98.1 F 68 22 H 146/100 H 96 04/09/19 05:07 04/09/19 05:07 04/09/19 05:07 04/09/19 05:07 04/09/19 05:07 Course - Re-evaluation Re-evalutation: 04/09/19 07:04 Vitals reviewed. Nursing notes reviewed. Patient is hypertensive with a history of hypertension and is not currently on medication because she states she does not have a doctor and does not like to take medicine. Her headache was gradual in onset with no focal neurologic deficits or fever. I do not suspect meningitis, intracranial hemorrhage or other acute intracranial process. Patient was given Tylenol and albuterol for her symptoms. 04/09/19 08:32 Patient's urinalysis is contaminated, she is not having any symptoms of acute UTI and urine culture will be added for confirmation. Patient's chest x-ray does show possible retrocardiac pneumonia. Patient will be started on azithromycin for her pneumonia. She is still afebrile and well-appearing. Patient does not appear septic. She we will continue to use albuterol inhaler for cough and wheezing. She will take Tylenol and Motrin for pain and fevers. Patient will be referred to primary care for follow-up. Laboratory 04/09/19 07:00 Urine Color YELLOW Urine Appearance SLIGHTLY-CLOUDY Urine pH 6.0 Ur Specific [place] 1.018 Urine Protein NEGATIVE Urine Glucose (UA) NEGATIVE Urine Ketones NEGATIVE Urine Blood NEGATIVE Urine Nitrite NEGATIVE Urine Bilirubin NEGATIVE Urine Urobilinogen NEGATIVE Ur Leukocyte Esterase MODERATE H Urine WBC (Auto) 12 Urine RBC (Auto) 7 Urine Bacteria (Auto) TRACE Squamous Epi Cells Auto 6 Urine Mucus (Auto) FEW Urine Ascorbic Acid NEGATIVE Urine HCG, Qual NEGATIVE Chest X-Ray 04/09/19 06:48 IMPRESSION: Possible retrocardiac pneumonia. - Vital Signs Vital signs: Temp Pulse Resp BP Pulse Ox 98.1 F 68 22 H 146/100 H 96 04/09/19 05:07 04/09/19 05:07 04/09/19 05:07 04/09/19 05:07 04/09/19 05:07 - Laboratory Laboratory results interpreted by me: 04/09/19 07:00 Ur Leukocyte Esterase MODERATE H Discharge - Discharge Clinical Impression: Cough, Elevated blood pressure reading Cephalgia Qualifiers: Headache type: unspecified Headache chronicity pattern: acute headache Intractability: not intractable Qualified Code(s): R51 - Headache Low back pain Qualifiers: Chronicity: acute Back pain laterality: bilateral Sciatica presence: without sciatica Qualified Code(s): M54.5 - Low back pain Community acquired pneumonia Qualifiers: Laterality: left Lung location: unspecified part of lung Qualified Code(s): J18.9 - Pneumonia, unspecified organism Condition: Stable Disposition: HOME, SELF-CARE Instructions: Headache ([facility]), Low Back Pain ([facility]), Pneumonia ([facility]) Additional Instructions: Please return to the emergency department if you have any worsening, or concern of your symptoms. Please return to the emergency department if you develop chest pain, difficulty breathing, severe abdominal pain, or ongoing vomiting. Please follow-up with your primary care physician in 2-3 days and any other recommended physicians. If prescribed, take all medications as directed. If you have any questions or concerns do not hesitate to return the emergency department for evaluation. Begin taking the azithromycin prescription tomorrow Use your albuterol inhaler 2 puffs every 4 hours for cough and shortness of breath Prescriptions: Azithromycin [Zithromax 250 mg Tablet] 250 mg PO ASDIR PRN #4 tablet PRN Reason: Azithromycin [Zithromax 250 mg Tablet] 250 mg PO DAILY #4 tablet Forms: Elevated Blood Pressure, Smoking Cessation Education Referrals: [facility] [Provider Group] - Follow up in 3-5 days
[2019-04-09 07:30] LABS: APPEARANCE,URINE SLIGHTLY-CLOUDY; BILIRUBIN,URINE NEGATIVE (NEGATIVE); COLOR,URINE YELLOW; GLUCOSE, URINE NEGATIVE (NEGATIVE); KETONES,URINE NEGATIVE (NEGATIVE); LEUKOCYTE ESTERASE,URINE MODERATE (NEGATIVE); NITRITE,URINE NEGATIVE (NEGATIVE); PROTEIN,URINE NEGATIVE (NEGATIVE); URINE SPECIFIC GRAVITY 1.018; UROBILINOGEN,URINE NEGATIVE mg/dL (<2.0)
--- NOTE | 2019-04-09 07:37 | RADIOLOGY REPORT (SQ) ---
CLINICAL HISTORY: cough COMPARISON: None. TECHNIQUE: XR CHEST 1 VIEW 04/09/2019 6:48 AM CDT FINDINGS: Cardiac silhouette is normal in size. There is a possible retrocardiac consolidation. There is no pleural effusion. There is no pneumothorax. There are no acute osseous findings. IMPRESSION: Possible retrocardiac pneumonia.
[2019-04-09] MEDS ORDERED: AZITHROMYCIN 250 MG TABLET PO ONE (08:32)
== END 2019-04-09 09:49 | disposition home or self-care (01) ==
LOC: ER 05:00
DX: J18.9 Pneumonia, unspecified organism (principal); R03.0 Elevated blood-pressure reading, without diagnosis of hypertension; R51 Headache; R05 Cough; M54.5 Low back pain; F17.200 Nicotine dependence, unspecified, uncomplicated; Z88.0 Allergy status to penicillin
CPT/HCPCS: 71045; 81001; 81025; 87086; 94640; 99284

== ENCOUNTER 2019-04-10 16:40 | Emergency (ER) | payer SELFPAY ==
[2019-04-10 16:57] VITALS: BP 144/90
[2019-04-10] MEDS ORDERED: ALBUTEROL SULFATE HFA (90 MCG/PUFF) 8 GM MDI (1 MDI/ER DISP) IH ONE (17:35)
[2019-04-10] MEDS ORDERED: AZITHROMYCIN 250 MG TABLET PO ONE (17:38)
--- NOTE | 2019-04-10 17:43 | ER Document Report ---
HPI - HPI Patient complains to provider of: back pain Time Seen by Provider: 04/10/19 17:05 Pain Level: 2 Context: Patient is a 33-year-old female presents to the emergency department for recurrence of symptoms from her visit to the emergency department yesterday. Patient states she was diagnosed with pneumonia yesterday given her initial dose of antibiotics and a breathing treatment. States she was given a prescription for an antibiotic for which she has not filled. States she does not have any money and cannot fill it. Patient states she is also not filled an albuterol prescription that she also has at home from a different visit. Patient states she has generalized back pain only when she takes a deep breath or coughs and just feels "tired." Patient initially told nursing staff that her headache is gotten worse. Patient was lying in bed sleeping upon my arrival to the room. Patient states her headache is better at this point time. Patient's denying any respiratory distress. States she continues with generalized cough and congestion. Patient denies fever - CONSTITUTIONAL Constitutional: DENIES: Fever, Chills - EENT EENT: DENIES: Sore Throat, Ear Pain, Eye problems - NEURO Neurology: REPORTS: Headache. DENIES: Weakness, Vision blurred, Dizzinesss / Vertigo - CARDIOVASCULAR Cardiovascular: DENIES: Chest pain - RESPIRATORY Respiratory: REPORTS: Trouble Breathing, Coughing - GASTROINTESTINAL Gastrointestinal: DENIES: Abdominal Pain, Black / Bloody Stools - URINARY Urinary: DENIES: Dysuria, Urgency, Frequency - REPRODUCTIVE Reproductive: DENIES: : - MUSCULOSKELETAL Musculoskeletal: DENIES: Extremity pain Past Medical History - General Information source: Patient - Social History Smoking Status: Current Every Day Smoker Chew tobacco use (# tins/day): No Frequency of alcohol use: None Drug Abuse: None Family History: None, Hypertension. denies: Arthritis, CAD, COPD, CVA, Hyperlipidemia, Malignancy, Thyroid Disfunction Patient has suicidal ideation: No Patient has homicidal ideation: No - Past Medical History Cardiac Medical History: Reports: Hx Hypertension - Patient does not take medications for her blood pressure problems Pulmonary Medical History: Reports: Hx Asthma, Hx Bronchitis Renal/ Medical History: Denies: Hx Peritoneal Dialysis - Immunizations Immunizations up to date: No Hx Diphtheria, Pertussis, Tetanus Vaccination: Yes - 08/02/2011 Vertical Provider Document - CONSTITUTIONAL Agree With Documented VS: Yes Notes: GENERAL: Alert, interacts well. No acute distress. HEAD: Normocephalic, atraumatic. EYES: Pupils equal, round, and reactive to light. Extraocular movements intact. ENT: Oral mucosa moist, tongue midline. NECK: Full range of motion. Supple. Trachea midline. LUNGS: Initially scant expiratory wheeze heard right lower base, after patient coughs lungs are clear to auscultation bilaterally, no wheezes, rales, or rhonchi. No respiratory distress. HEART: Regular rate and rhythm. No murmur ABDOMEN: Soft, non-tender. Non-distended. Bowel sounds present in all 4 quadrants. EXTREMITIES: Moves all 4 extremities spontaneously. No edema, normal radial and dorsalis pedis pulses bilaterally. No cyanosis. BACK: no cervical, thoracic, lumbar midline tenderness. No saddle anesthesia, normal distal neurovascular exam. NEUROLOGICAL: Alert and oriented x3. Normal speech. cranial nerves II through XII grossly intact PSYCH: Normal affect, normal mood. SKIN: Warm, dry, normal turgor. No rashes or lesions noted. - INFECTION CONTROL TRAVEL OUTSIDE OF THE [place] IN LAST 30 DAYS: No Course - Re-evaluation Re-evalutation: 04/10/19 17:41 Patient is afebrile, non-tachycardic, SPO2 of 96% on room air in no respiratory distress. I discussed giving the patient another dose of her antibiotics in the emergency room. I have also discussed giving her an albuterol inhaler MDI dispense pack in the emergency room. I have discussed importance of patient need to get antibiotics filled that she will not feel better until she does take her antibiotics. I discussed keeping well-hydrated and using [id number] analgesics. Patient was given a good Rx discount prescription card, stable for discharge. 04/10/19 17:43 Patient is now requesting a note for work. - Vital Signs Vital signs: Temp Pulse Resp BP Pulse Ox 98.5 F 89 20 144/90 H 96 04/10/19 16:55 04/10/19 16:55 04/10/19 16:55 04/10/19 16:55 04/10/19 16:55 Discharge - Discharge Clinical Impression: Pneumonia Qualifiers: Pneumonia type: due to unspecified organism Laterality: unspecified laterality Lung location: unspecified part of lung Qualified Code(s): J18.9 - Pneumonia, unspecified organism Condition: Stable Disposition: HOME, SELF-CARE Instructions: Pneumonia ([facility]) Additional Instructions: As we discussed you have been seen and treated in the emergency department for your pneumonia. You were diagnosed with pneumonia yesterday and have not filled her antibiotics. The only way you are going to get better as if you take antibiotics as prescribed. At this point time your vital signs are within normal limits and unalarming. Please make sure you also take [id number] Tylenol and Motrin for generalized body aches, back pain, headache. Please stay well-hydrated and follow-up with your primary care provider. Phone numbers for [place] [facility] in [facility] will be provided in this packet. These are to clinics you can go to if you are uninsured. Please return to the emergency room for any concerns. Forms: Return to Work Referrals: [facility] [Provider Group] - Follow up as needed [facility] [Provider Group] - Follow up as needed
[2019-04-10] MEDS ORDERED: ACETAMINOPHEN SOLN 325 MG/10.15 ML UDCUP PO ONE (17:49)
[2019-04-10] MEDS ORDERED: ACETAMINOPHEN 325 MG TABLET ONE (17:51)
[2019-04-10] MEDS ORDERED: ACETAMINOPHEN 325 MG TABLET PO ONE (17:52)
== END 2019-04-10 17:56 | disposition home or self-care (01) ==
LOC: ER 16:40
DX: J18.9 Pneumonia, unspecified organism (principal); T36.96XA Underdosing of unspecified systemic antibiotic, initial encounter; Z91.120 Patient's intentional underdosing of medication regimen due to financial hardship; Z91.14 Patient's other noncompliance with medication regimen; J45.909 Unspecified asthma, uncomplicated; R05 Cough; R51 Headache; I10 Essential (primary) hypertension; F17.200 Nicotine dependence, unspecified, uncomplicated
CPT/HCPCS: 99283; J3490

== ENCOUNTER → 2019-05-17 | Outpatient (CLI) | payer OTHER ==
[2019-05-17 15:18] LABS: ABSOLUTE EOSINOPHILS # (AUTO) 0.1 10^3/uL (0.0-0.6); ABSOLUTE LYMPHOCYTES (AUTO) 2.6 10^3/uL (0.5-4.7); ABSOLUTE MONOCYTES (AUTO) 0.5 10^3/uL (0.1-1.4); ABSOLUTE NEUT (AUTO) 1.9 10^3/uL (1.7-8.2); BASOPHILS % (AUTO) 0.6 % (0-2); EOSINOPHILS % (AUTO) 2.3 % (0-6); HEMATOCRIT 31.5 % (36.0-47.0); HEMOGLOBIN 10.2 g/dL (12.0-15.5); MEAN CORPUSCULAR HEMOGLOBIN 20.9 pg (27.0-33.4); MEAN CORPUSCULAR HGB CONC 32.3 g/dL (32.0-36.0); MEAN CORPUSCULAR VOLUME 65 fl (80-97); MONOCYTES % (AUTO) 9.7 % (3-13); PLATELET COUNT 220 10^3/uL (150-450); RED BLOOD COUNT 4.85 10^6/uL (3.72-5.28); RED CELL DISTRIBUTION WIDTH 16.4 % (11.5-14.0); SEGMENTED NEUTROPHILS % (AUTO) 37.4 % (42-78); TOTAL CELLS COUNTED % (AUTO) 100 %; WHITE BLOOD COUNT 5.1 10^3/uL (4.0-10.5)
[2019-05-17 15:33] LABS: ALANINE AMINOTRANSFERASE 21 U/L (9-52); ALBUMIN 3.9 g/dL (3.5-5.0); ALKALINE PHOSPHATASE 55 U/L (38-126); ANION GAP 5 (5-19); ASPARTATE AMINO TRANSFERASE 20 U/L (14-36); BILIRUBIN,DIRECT 0.1 mg/dL (0.0-0.4); BILIRUBIN,TOTAL 0.5 mg/dL (0.2-1.3); BLOOD UREA NITROGEN 8 mg/dL (7-20); CALCIUM 9.2 mg/dL (8.4-10.2); CARBON DIOXIDE 28 mmol/L (22-30); CHLORIDE 107 mmol/L (98-107); CHOLESTEROL 153.36 mg/dL (0-200); GLUCOSE 80 mg/dL (75-110); POTASSIUM 3.9 mmol/L (3.6-5.0); SODIUM 140.4 mmol/L (137-145); TRIGLYCERIDES 67 mg/dL (<150)
[2019-05-17 15:37] LABS: HYPOCHROMASIA 1+; POLYCHROMASIA 1+
[2019-05-17 15:38] LABS: PLATELET COMMENT ADEQUATE
[2019-05-17 15:41] LABS: BURR CELLS SLIGHT
[2019-05-17 15:42] LABS: ANISOCYTOSIS 1+
[2019-05-17 15:44] LABS: DIRECT LDL 74 mg/dL (<100)
[2019-05-18 12:40] LABS: PATH REVIEW PATHOLOGIST REVIEWED
== END ==
LOC: CCC 14:38
DX: J45.998 Other asthma (principal); D64.9 Anemia, unspecified; J18.9 Pneumonia, unspecified organism
CPT/HCPCS: 36415; 80053; 80061; 84443; 85025

== ENCOUNTER 2019-06-22 20:50 | Emergency (ER) | payer OTHER ==
[2019-06-22] MEDS ORDERED: DEXAMETHASONE 4 MG TABLET PO ONE (23:34)
[2019-06-22] MEDS ORDERED: DIPHENHYDRAMINE HCL 50 MG/ML VIAL IV ONE (23:34)
[2019-06-22] MEDS ORDERED: RINGERS SOLUTION,LACTATED 1,000 ML IV ONE (23:34)
[2019-06-22] MEDS ORDERED: METOCLOPRAMIDE HCL INJ/PF 10 MG/2 ML SDV IV ONE (23:34)
--- NOTE | 2019-06-22 23:37 | ER Document Report ---
ED General - General Chief Complaint: Headache >24 hrs old Stated Complaint: HEADACHE Time Seen by Provider: 06/22/19 23:02 Mode of Arrival: Ambulatory Information source: Patient, [facility] Records Notes: 33-year-old female with hypertension, asthma presents with complaint of a headache that started 2 days prior to arrival. Headache is located in her forehead described as a throbbing pain. Pain was gradual in onset has associated nausea without vomiting, photophobia. Patient denies associated fever, trauma. She has had prior similar headaches. She has not tried taking any Tylenol or Motrin for this headache. TRAVEL OUTSIDE OF THE U[place] IN LAST 30 DAYS: No - HPI Onset: Other Onset/Duration: Gradual, Persistent Quality of pain: Throbbing Severity: Moderate Pain Level: 2 Associated symptoms: Headache, Nausea. denies: Body/muscle aches, Chest pain, Nonproductive cough, Fever, Vomiting, Shortness of breath Exacerbated by: Denies Relieved by: Denies Similar symptoms previously: Yes Recently seen / treated by doctor: No - Related Data Allergies/Adverse Reactions: amoxicillin Allergy (Verified 04/10/19 16:47) Penicillins Allergy (Verified 04/10/19 16:47) Past Medical History - General Information source: Patient - Social History Smoking Status: Current Every Day Smoker Cigarette use (# per day): Yes - 10 Chew tobacco use (# tins/day): No Smoking Education Provided: Yes - Smoking cessation counseling was provided for 4 minutes at the bedside Frequency of alcohol use: Occasional Drug Abuse: None Lives with: Family Family History: None, Hypertension. denies: Arthritis, CAD, COPD, CVA, Hyperlipidemia, Malignancy, Thyroid Disfunction Patient has suicidal ideation: No Patient has homicidal ideation: No - Past Medical History Cardiac Medical History: Reports: Hx Hypertension - Patient does not take medications for her blood pressure problems Pulmonary Medical History: Reports: Hx Asthma, Hx Bronchitis Renal/ Medical History: Denies: Hx Peritoneal Dialysis - Immunizations Immunizations up to date: No Hx Diphtheria, Pertussis, Tetanus Vaccination: Yes - 08/02/2011 Review of Systems - Review of Systems Notes: REVIEW OF SYSTEMS: CONSTITUTIONAL : Denies fever, chills, or sweats. Denies recent illness. Denies weight loss, recent hospitalizations. EENT: Denies visual changes, eye pain. Denies sore throat, oral lesions, difficulty swallowing. CARDIOVASCULAR: Denies chest pain. Denies palpitations. Denies lower extremity edema. RESPIRATORY: Denies cough. Denies shortness of breath, wheezing. GASTROINTESTINAL: Denies abdominal pain or distention. Denies nausea, vomiting, or diarrhea. Denies blood in vomitus, stools, or per rectum. Denies black, tarry stools. Denies constipation. GENITOURINARY: Denies difficulty urinating, painful urination, frequency, blood in urine, or vaginal discharge. MUSCULOSKELETAL: Denies back or neck pain or stiffness. Denies joint pain or swelling. SKIN: Denies rash, lesions or sores. HEMATOLOGIC : Denies easy bruising or bleeding. LYMPHATIC: Denies swollen glands. NEUROLOGICAL: Denies confusion or altered mental status. Denies loss of consciousness. Denies dizziness or lightheadedness. Denies weakness or paralysis. Denies problems difficulty with ambulation, slurred speech. Denies sensory loss, numbness, or tingling. Denies seizures. PSYCHIATRIC: Denies anxiety or stress. Denies depression, suicidal ideation, or homicidal ideation. Denies visual or auditory hallucinations. Physical Exam - Vital signs Vitals: Temp Pulse Resp BP Pulse Ox 98.3 F 64 16 120/86 H 100 06/22/19 21:05 06/22/19 21:05 06/22/19 21:05 06/22/19 21:05 06/22/19 21:05 - Notes Notes: PHYSICAL EXAMINATION: GENERAL: Well-appearing, well-nourished and in no acute distress. HEAD: Atraumatic, normocephalic. EYES: Pupils equal round and reactive to light, extraocular movements intact, conjunctiva are normal. Normal funduscopic exam ENT: Nares patent, oropharynx clear without exudates. Moist mucous membranes. NECK: Normal range of motion, supple without lymphadenopathy LUNGS: Breath sounds clear to auscultation bilaterally and equal. No wheezes rales or rhonchi. HEART: Regular rate and rhythm without murmurs ABDOMEN: Soft, nontender, nondistended abdomen. No guarding, no rebound. No masses appreciated. Female : deferred Musculoskeletal: Normal range of motion, no pitting or edema. No cyanosis. NEUROLOGICAL: Mental status; alert and oriented x3. Cranial nerves II through XII intact. Sensation intact to sharp/dull differentiation in all extremities. Motor; normal tone. No abnormal movements appreciated. No pronator drift. Strength tested and 5/5 in bilateral wrist flexion/extension, elbow flexion/extension, shoulder abduction, straight leg raise, knee flexion/ex tension, ankle dorsiflexion/plantar flexion. Patient ambulates with a steady gait. Coordination; no ataxia. Finger to nose and heel to jade testing intact bilaterally. Reflexes; brachial radialis, biceps, and patellar reflexes within normal limits and symmetric bilaterally. Babinski with downgoing toes bilaterally. PSYCH: Normal mood, normal affect. SKIN: Warm, Dry, normal turgor, no rashes or lesions noted. Course - Re-evaluation Re-evalutation: Temp Pulse Resp BP Pulse Ox 97.5 F 61 16 126/80 H 100 06/23/19 02:02 06/23/19 02:02 06/23/19 02:02 06/23/19 02:02 06/23/19 02:02 33-year-old female presents with 2 days of frontal headache that she describes as throbbing. Headache was gradual in onset, not associated with fever or trauma. Patient has not tried taking any Tylenol or Motrin because "I do not like pills". Vital signs reviewed and within normal limits. Patient does not appear toxic or dehydrated. She is in no acute distress. Previous medical records and nursing notes reviewed. 06/23/19 01:28 Patient reports resolution of her headache after receiving Reglan, Benadryl and IV fluids. 06/23/19 05:12 Presentation of a headache that appears to be most consistent with tension versus migrainous type headache. Headache was not maximal in onset, patient has no focal neurologic deficits, no nuchal rigidity, vital signs within normal limits, no papilledema, and patient is overall well in appearance. Based on clinical history and examination I do not suspect an acute subarachnoid hemorrhage, dural venous sinus thrombosis, acute meningitis, or intercranial mass. Given my low clinical suspicion for any acute life-threatening etiology, I do not feel advanced neuro imaging or laboratory testing is indicated at this time. Will proceed with headache cocktail and reassess. - Vital Signs Vital signs: Temp Pulse Resp BP Pulse Ox 97.5 F 61 16 126/80 H 100 06/23/19 02:02 06/23/19 02:02 06/23/19 02:02 06/23/19 02:02 06/23/19 02:02 - Laboratory Laboratory results interpreted by me: 06/23/19 01:17 Urine Ketones TRACE H Ur Leukocyte Esterase TRACE H Discharge - Discharge Clinical Impression: Headache Qualifiers: Headache type: unspecified Headache chronicity pattern: unspecified pattern Intractability: not intractable Qualified Code(s): R51 - Headache Condition: Good Disposition: HOME, SELF-CARE Instructions: Headache ([facility]), Tension Headache ([facility]) Additional Instructions: You have been seen in the Emergency Department (ED) for a headache. Please use Tylenol (acetaminophen) or Motrin (ibuprofen) as needed for symptoms, but only as written on the box. As we have discussed, please follow up with your primary care doctor as soon as possible regarding today's ED visit and your headache symptoms. Call your doctor or return to the ED if you have a worsening headache, sudden and severe headache, confusion, slurred speech, facial droop, weakness or numbness in any arm or leg, extreme fatigue, or other symptoms that concern you. Forms: Elevated Blood Pressure, Smoking Cessation Education
[2019-06-23 02:03] VITALS: BP 126/80
[2019-06-23 02:22] LABS: AMORPHOUS SEDIMENT,URINE TRACE /HPF; APPEARANCE,URINE CLOUDY; BILIRUBIN,URINE NEGATIVE (NEGATIVE); COLOR,URINE YELLOW; GLUCOSE, URINE NEGATIVE (NEGATIVE); KETONES,URINE TRACE mg/dL (NEGATIVE); LEUKOCYTE ESTERASE,URINE TRACE (NEGATIVE); NITRITE,URINE NEGATIVE (NEGATIVE); PROTEIN,URINE NEGATIVE (NEGATIVE); URINE SPECIFIC GRAVITY 1.016; UROBILINOGEN,URINE NEGATIVE mg/dL (<2.0)
== END 2019-06-23 02:02 | disposition home or self-care (01) ==
LOC: ER 20:50
DX: R51 Headache (principal); R11.0 Nausea; F17.210 Nicotine dependence, cigarettes, uncomplicated; Z88.0 Allergy status to penicillin
CPT/HCPCS: 81001; 81025; J1200; J2765; J7120

== ENCOUNTER → 2019-07-18 | Outpatient (CLI) | payer OTHER ==
[2019-07-18 15:49] LABS: RETICULOCYTE COUNT (AUTO) 0.81 % (0.66-2.85)
[2019-07-18 16:10] LABS: IRON 45.4 ug/dL (37-170)
[2019-07-18 16:42] LABS: FERRITIN 11.8 ng/mL (6.2-137.0)
[2019-07-20 16:11] LABS: ABSOLUTE LYMPHOCYTES (AUTO) 2.8 10^3/uL (0.5-4.7); ABSOLUTE MONOCYTES (AUTO) 0.6 10^3/uL (0.1-1.4); ABSOLUTE NEUT (AUTO) 2.5 10^3/uL (1.7-8.2); BASOPHILS % (AUTO) 0.4 % (0-2); EOSINOPHILS % (AUTO) 0.6 % (0-6); HEMOGLOBIN 10.7 g/dL (12.0-15.5); LYMPHOCYTES % (AUTO) 46.3 % (13-45); MEAN CORPUSCULAR HEMOGLOBIN 21.3 pg (27.0-33.4); MEAN CORPUSCULAR HGB CONC 32.3 g/dL (32.0-36.0); MEAN CORPUSCULAR VOLUME 66 fl (80-97); MONOCYTES % (AUTO) 10.8 % (3-13); PLATELET COUNT 216 10^3/uL (150-450); SEGMENTED NEUTROPHILS % (AUTO) 41.9 % (42-78); TOTAL CELLS COUNTED % (AUTO) 100 %
== END ==
LOC: CCC 14:30
DX: D50.9 Iron deficiency anemia, unspecified (principal)
CPT/HCPCS: 36415; 82728; 83540; 85025; 85045

== ENCOUNTER 2019-08-20 15:17 | Emergency (ER) | payer OTHER ==
[2019-08-20 15:24] VITALS: BP 120/84
[2019-08-20] MEDS ORDERED: IBUPROFEN 600 MG TABLET PO ONE (15:50)
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
--- NOTE | 2019-08-20 16:37 | RADIOLOGY REPORT (SQ) ---
EXAM DESCRIPTION: FOOT LEFT COMPLETE COMPLETED DATE/TIME: 08/20/2019 4:18 pm REASON FOR STUDY: pain and injury to left foot and right elbow COMPARISON: None. NUMBER OF VIEWS: Three views. TECHNIQUE: AP, lateral and oblique radiographic images acquired of the left foot. LIMITATIONS: None. FINDINGS: MINERALIZATION: Normal. BONES: No acute fracture or dislocation. No worrisome bone lesions. Incidental note is made of calc aneal enthesopathy. JOINTS: No effusions. SOFT TISSUES: No soft tissue swelling. No foreign body. OTHER: No other significant finding. IMPRESSION: No radiographic evidence of acute osseous injury. TECHNICAL DOCUMENTATION: JOB ID: [id number] [employer]- All Rights Reserved Reading location - IP/workstation name: [email or web address]
--- NOTE | 2019-08-20 16:38 | RADIOLOGY REPORT (SQ) ---
EXAM DESCRIPTION: ELBOW RIGHT OVER 2 VIEWS COMPLETED DATE/TIME: 08/20/2019 4:18 pm REASON FOR STUDY: pain and injury to left foot and right elbow COMPARISON: None. NUMBER OF VIEWS: Four views. TECHNIQUE: AP, lateral, and both oblique radiographic images acquired of the right elbow. LIMITATIONS: None. FINDINGS: MINERALIZATION: Normal. BONES: No acute fracture or dislocation. No worrisome bone lesions. JOINT: No effusion. SOFT TISSUES: No soft tissue swelling. No foreign body. OTHER: No other significant finding. IMPRESSION: NEGATIVE STUDY OF THE RIGHT ELBOW. NO RADIOGRAPHIC EVIDENCE OF ACUTE INJURY. TECHNICAL DOCUMENTATION: JOB ID: [id number] [employer]- All Rights Reserved Reading location - IP/workstation name: [email or web address]
== END 2019-08-20 17:25 | disposition home or self-care (01) ==
LOC: ER 15:17
DX: M25.521 Pain in right elbow (principal); M79.672 Pain in left foot; M79.601 Pain in right arm; Y04.0XXA Assault by unarmed brawl or fight, initial encounter; F17.200 Nicotine dependence, unspecified, uncomplicated; I10 Essential (primary) hypertension; J45.909 Unspecified asthma, uncomplicated
CPT/HCPCS: 99283

== ENCOUNTER 2019-12-28 09:58 | Emergency (ER) | payer SELFPAY ==
[2019-12-28 10:03] VITALS: BP 127/84
== END 2019-12-28 11:57 | disposition left against medical advice (07) ==
LOC: ER 09:58
DX: Z53.21 Procedure and treatment not carried out due to patient leaving prior to being seen by health care provider (principal); R50.9 Fever, unspecified

== ENCOUNTER 2019-12-30 08:10 | Emergency (ER) | payer SELFPAY ==
[2019-12-30 08:17] VITALS: BP 139/85
[2019-12-30] MEDS ORDERED: IPRATROPIUM/ALBUTEROL 0.5-2.5 MG/3 ML AMPUL NEB ONE (10:24)
[2019-12-30] MEDS ORDERED: AZITHROMYCIN 250 MG TABLET PO ONE (10:24)
[2019-12-30] MEDS ORDERED: PREDNISONE 20 MG TABLET PO ONE (10:24)
--- NOTE | 2019-12-30 10:39 | ER Document Report ---
Entered by MARIANNE QUINTANA SCRIBE 12/30/19 1024 Acting as scribe for:ASHLEY COSBY MD ED General - General Chief Complaint: Cold Symptoms Stated Complaint: COLD SYMPTOMS Time Seen by Provider: 12/30/19 10:04 Information source: Patient Notes: 34-year-old female presents to the emergency department with cold symptoms that began three days ago. 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 Patient reports cough with green sputum, nose congestion and fever. Patient reports last normal menstrual period as 11/07/2019. TRAVEL OUTSIDE OF THE [place] IN LAST 30 DAYS: No - Related Data Allergies/Adverse Reactions: amoxicillin Allergy (Verified 08/20/19 15:47) Penicillins Allergy (Verified 08/20/19 15:47) Past Medical History - General Information source: Patient - Social History Smoking Status: Current Every Day Smoker Cigarette use (# per day): Yes - 1 pack per day Chew tobacco use (# tins/day): No Smoking Education Provided: No Frequency of alcohol use: Occasional Drug Abuse: None Family History: None, Hypertension Patient has suicidal ideation: No Patient has homicidal ideation: No - Past Medical History Cardiac Medical History: Reports: Hx Hypertension - Patient does not take medications for her blood pressure problems Pulmonary Medical History: Reports: Hx Asthma, Hx Bronchitis Surgical Hx: Negative - Immunizations Immunizations up to date: No Hx Diphtheria, Pertussis, Tetanus Vaccination: Yes - 08/02/2011 Review of Systems - Review of Systems Constitutional: See HPI, Fever EENT: See HPI, Nose congestion Cardiovascular: No symptoms reported Respiratory: See HPI, Cough Gastrointestinal: No symptoms reported Genitourinary: No symptoms reported Female Genitourinary: No symptoms reported Musculoskeletal: No symptoms reported Skin: No symptoms reported Hematologic/Lymphatic: No symptoms reported Neurological/Psychological: No symptoms reported -: Yes All other systems reviewed and negative Physical Exam - Vital signs Vitals: Temp Pulse Resp BP Pulse Ox 98.4 F 92 18 139/85 H 100 12/30/19 08:15 12/30/19 08:15 12/30/19 08:15 12/30/19 08:15 12/30/19 08:15 - Notes Notes: Physical Exam: General: Alert, appears well. HEENT: Normocephalic. Atraumatic. PERRL. Extraocular movements intact. Oropharynx clear. Sinus congestion. Neck: Supple. Non-tender. Respiratory: No respiratory distress. Wheezing and rhonchi bilaterally when asked to cough. Cardiovascular: Regular rate and rhythm. Abdominal: Normal Inspection. Non-tender. No distension. Normal Bowel Sounds. Back: No gross abnormalities. Extremities: Moves all four extremities. Upper extremities: Normal inspection. Normal ROM. Lower extremities: Normal inspection. No edema. Normal ROM. Neurological: Normal cognition. AAOx4. Normal speech. Psychological: Normal affect. Normal Mood. Skin: Warm. Dry. Normal color. Course - Re-evaluation Re-evalutation: 12/30/19 15:45 The nurse reported that when the went to check on the patient she had eloped without getting any medication. - Vital Signs Vital signs: Temp Pulse Resp BP Pulse Ox 98.4 F 92 18 139/85 H 100 12/30/19 08:15 12/30/19 08:15 12/30/19 08:15 12/30/19 08:15 12/30/19 08:15 Discharge - Discharge Clinical Impression: Acute bronchitis with bronchospasm Condition: Good Disposition: ELOPED I personally performed the services described in the documentation, reviewed and edited the documentation which was dictated to the scribe in my presence, and it accurately records my words and actions.
== END 2019-12-30 11:53 | disposition left against medical advice (07) ==
LOC: ER 08:10
DX: J20.9 Acute bronchitis, unspecified (principal); R50.9 Fever, unspecified; F17.210 Nicotine dependence, cigarettes, uncomplicated; Z88.0 Allergy status to penicillin
CPT/HCPCS: 99281

== ENCOUNTER 2020-08-06 12:15 | Emergency (ER) | payer SELFPAY ==
[2020-08-06 12:29] VITALS: BP 122/90
[2020-08-06] MEDS ORDERED: METOCLOPRAMIDE HCL INJ/PF 10 MG/2 ML SDV IV ONE (13:08)
[2020-08-06] MEDS ORDERED: RINGERS SOLUTION,LACTATED 1,000 ML IV PRN (13:08)
--- NOTE | 2020-08-06 13:10 | ER Document Report ---
ED Medical Screen (RME) - General Chief Complaint: Abdominal Pain Stated Complaint: ABDOMINAL PAIN Time Seen by Provider: 08/06/20 13:07 Mode of Arrival: Ambulatory Information source: Patient Notes: HPI; 35-year-old female presents to the emergency room complaining of left upper and mid epigastric abdominal pain for the past 2 days. Complains of nausea with decreased appetite. Denies fever. Denies urinary symptoms. No medications for symptoms. Denies any recent travel. Denies any COVID-19 exposure. Denies any diarrhea. PE: Alert and oriented x3. Mild distress noted. Lungs: Clear to auscultation without rales, rhonchi, wheezes. Heart: Regular rate rhythm without murmurs, rubs, gallops. I have greeted and performed a rapid initial assessment of this patient. A comprehensive ED assessment and evaluation of the patient, analysis of test results and completion of the medical decision making process will be conducted by additional ED providers. I have specifically instructed the patient or family members with the patient to immediately return to any nursing staff should anything change in the patient's condition or with their chief complaint. TRAVEL OUTSIDE OF THE [place] IN LAST 30 DAYS: No - Related Data Allergies/Adverse Reactions: amoxicillin Allergy (Verified 08/20/19 15:47) Penicillins Allergy (Verified 08/20/19 15:47) Past Medical History - Past Medical History Cardiac Medical History: Reports: Hx Hypertension - Patient does not take medications for her blood pressure problems Pulmonary Medical History: Reports: Hx Asthma, Hx Bronchitis Renal/ Medical History: Denies: Hx Peritoneal Dialysis - Immunizations Immunizations up to date: No Hx Diphtheria, Pertussis, Tetanus Vaccination: Yes - 08/02/2011 Physical Exam - Vital signs Vitals: Temp Pulse Resp BP Pulse Ox 98.9 F 81 18 122/90 H 100 08/06/20 12:28 08/06/20 12:28 08/06/20 12:28 08/06/20 12:28 08/06/20 12:28 Course - Vital Signs Vital signs: Temp Pulse Resp BP Pulse Ox 98.9 F 81 18 122/90 H 100 08/06/20 12:28 08/06/20 12:28 08/06/20 12:28 08/06/20 12:28 08/06/20 12:28
[2020-08-06 13:49] LABS: ABSOLUTE LYMPHOCYTES (AUTO) 1.3 10^3/uL (0.5-4.7); ABSOLUTE MONOCYTES (AUTO) 0.5 10^3/uL (0.1-1.4); ABSOLUTE NEUT (AUTO) 5.1 10^3/uL (1.7-8.2); BASOPHILS % (AUTO) 0.6 % (0-2); HEMATOCRIT 34.3 % (36.0-47.0); HEMOGLOBIN 11.4 g/dL (12.0-15.5); LYMPHOCYTES % (AUTO) 18.7 % (13-45); MEAN CORPUSCULAR HEMOGLOBIN 22.1 pg (27.0-33.4); MEAN CORPUSCULAR HGB CONC 33.2 g/dL (32.0-36.0); MEAN CORPUSCULAR VOLUME 67 fl (80-97); MONOCYTES % (AUTO) 6.7 % (3-13); PLATELET COUNT 234 10^3/uL (150-450); RED BLOOD COUNT 5.15 10^6/uL (3.72-5.28); RED CELL DISTRIBUTION WIDTH 16.4 % (11.5-14.0); TOTAL CELLS COUNTED % (AUTO) 100 %; WHITE BLOOD COUNT 6.9 10^3/uL (4.0-10.5)
[2020-08-06 14:07] LABS: ALBUMIN 4.1 g/dL (3.5-5.0); ALKALINE PHOSPHATASE 79 U/L (38-126); ANION GAP 6 (5-19); ASPARTATE AMINO TRANSFERASE 18 U/L (14-36); BILIRUBIN,DIRECT 0.2 mg/dL (0.0-0.4); BILIRUBIN,TOTAL 0.7 mg/dL (0.2-1.3); BLOOD UREA NITROGEN 7 mg/dL (7-20); CALCIUM 9.2 mg/dL (8.4-10.2); CARBON DIOXIDE 23 mmol/L (22-30); CHLORIDE 110 mmol/L (98-107); GLUCOSE 82 mg/dL (75-110); POTASSIUM 3.9 mmol/L (3.6-5.0); TOTAL PROTEIN 7.3 g/dL (6.3-8.2)
== END 2020-08-06 16:11 | disposition left against medical advice (07) ==
LOC: ER 12:15
DX: R10.12 Left upper quadrant pain (principal); R10.13 Epigastric pain; R11.0 Nausea; R63.0 Anorexia; I10 Essential (primary) hypertension; J45.909 Unspecified asthma, uncomplicated; Z88.0 Allergy status to penicillin; Z53.20 Procedure and treatment not carried out because of patient's decision for unspecified reasons
CPT/HCPCS: 36415; 80053; 83690; 84703; 85025; 99281

== ENCOUNTER → 2020-09-12 | Outpatient (CLI) | payer SELFPAY ==
[2020-09-12 11:20] LABS: ABSOLUTE EOSINOPHILS # (AUTO) 0.2 10^3/uL (0.0-0.6); ABSOLUTE MONOCYTES (AUTO) 0.6 10^3/uL (0.1-1.4); ABSOLUTE NEUT (AUTO) 1.4 10^3/uL (1.7-8.2); BASOPHILS % (AUTO) 0.3 % (0-2); EOSINOPHILS % (AUTO) 4.5 % (0-6); HEMOGLOBIN 10.8 g/dL (12.0-15.5); LYMPHOCYTES % (AUTO) 47.4 % (13-45); MEAN CORPUSCULAR HEMOGLOBIN 21.7 pg (27.0-33.4); MEAN CORPUSCULAR HGB CONC 32.7 g/dL (32.0-36.0); MEAN CORPUSCULAR VOLUME 67 fl (80-97); MONOCYTES % (AUTO) 13.9 % (3-13); PLATELET COUNT 194 10^3/uL (150-450); RED BLOOD COUNT 4.97 10^6/uL (3.72-5.28); RED CELL DISTRIBUTION WIDTH 16.1 % (11.5-14.0); SEGMENTED NEUTROPHILS % (AUTO) 33.9 % (42-78); TOTAL CELLS COUNTED % (AUTO) 100 %; WHITE BLOOD COUNT 4.2 10^3/uL (4.0-10.5)
[2020-09-12 11:49] LABS: ALBUMIN 3.9 g/dL (3.5-5.0); ALKALINE PHOSPHATASE 60 U/L (38-126); ANION GAP 6 (5-19); ASPARTATE AMINO TRANSFERASE 19 U/L (14-36); BILIRUBIN,DIRECT 0.1 mg/dL (0.0-0.4); BILIRUBIN,TOTAL 0.5 mg/dL (0.2-1.3); BLOOD UREA NITROGEN 7 mg/dL (7-20); CALCIUM 9.1 mg/dL (8.4-10.2); CARBON DIOXIDE 28 mmol/L (22-30); CHLORIDE 106 mmol/L (98-107); POTASSIUM 3.8 mmol/L (3.6-5.0); TOTAL PROTEIN 6.7 g/dL (6.3-8.2)
[2020-09-12 11:50] LABS: C-REACTIVE PROTEIN < 5.0 mg/L (<10.0); GLUCOSE 64 mg/dL (75-110)
[2020-09-12 12:00] LABS: ERYTHROCYTE SEDIMENTATION RATE 8 mm/hr (0-20)
--- NOTE | 2020-09-12 12:58 | RADIOLOGY REPORT (SQ) ---
EXAM DESCRIPTION: CHEST PA/LATERAL IMAGES COMPLETED DATE/TIME: 09/12/2020 10:43 am REASON FOR STUDY: ABNORMAL WEIGHT LOSS COMPARISON: 04/09/2019 EXAM PARAMETERS: NUMBER OF VIEWS: two views TECHNIQUE: Digital Frontal and Lateral radiographic views of the chest acquired. RADIATION DOSE: NA LIMITATIONS: none FINDINGS: LUNGS AND PLEURA: No opacities, masses or pneumothorax. No pleural effusion. MEDIASTINUM AND HILAR STRUCTURES: No masses or contour abnormalities. HEART AND VASCULAR STRUCTURES: Heart size is stable slightly enlarged. No failure. BONES: No acute findings. HARDWARE: None in the chest. OTHER: No other significant finding. IMPRESSION: Mild cardiomegaly. No acute findings. TECHNICAL DOCUMENTATION: JOB ID: [id number] 2010 [employer]- All Rights Reserved Reading location - IP/workstation name: [email or web address]
--- OUTSIDE RECORDS SUMMARY | 2020-09-13 18:26 | XMS REPORT ---
:1985 Author Organization [facility] Address [facility] [address] [place] [address] Care Team Providers Name Role Phone Unavailable Unavailable Unavailable Allergies, Adverse Reactions, Alerts Allergy Allergy Status Severity Reaction(s) Onset Inactive Treating C omments Name Type Date Date Clinician Penicillin Allergy to Active Unknown 2015-11 Substance 2 00:00: 00 Penicillin Allergy to Inactive Unknown 2015-11 Substance 12-04 00:00: 00 Medications Ordered Filled Start Stop Current Ordering Indication Dosage Frequency Signature Comments Components Medication Medication Date Date Medication? Clinician (SIG) Name Name Oxycodone/A 2015-11 Yes Sahil Jenkins 5 Every 6 cetaminophe 202 Md Hours as n (Percocet 00:00: needed for 5/325 00 Tablet) 1 Tab Tab Trimethopri 2015-11 Yes Sahil Jenkins 1 Twice A m/Sulfameth 2 Md Day oxazole 00:00: (Bactrim Ds 00 Tablet) 1 Each Tablet Cyclobenzap 2015- No Patricia 5 Three rine Hcl 01-13 Shay Pa Times A (Flexeril) 00:00: 00:00 Day 5 Mg 00 :00 Tablet, 5 Mg Oral Ibuprofen 2015- No Patricia 800 Every 8 (Motrin) 01-13 Shay Pa Hours as 800 Mg 00:00: 00:00 needed for Tablet, 800 00 :00 Pain Mg Oral Acetaminoph 2015- No Patricia 1 Every 6 en/Hydrocod 01-13 Shay Pa Hours one Bitart 00:00: 00:00 (Vicodin 00 :00 5/300) 1 Each Tablet, 1 Tab Oral Ibuprofen 2014-11- No Sana 800 Every 8 (Motrin) 008-30 Pavlovic Hours 800 Mg 00:00: 00:00 Pa Tablet, 800 00 :00 Mg Oral Acetaminoph 2014-11- No Sana 1 Every 6 en/Hydrocod -08-29 Pavlovic Hours as one Bitart 00:00: 00:00 Pa needed for (Gracey 00 :00 Pain 5-325) 1 Tab Tablet, 1 Tab Oral Amoxicillin 2014-11 2015- No Sana 500 Three (Amoxil) 08-29 Pavlovic Times A 500 Mg 00:00: 00:00 Pa Day Tablet, 500 00 :00 Mg Oral Problems Condition Condition Condition Status Onset Resolution Last Treatin g Comments Name Details Category Date Date Treatment Clinician Date Hypertensio Hypertensio Problem Resolve 2015-11 n n d 12-04 10:18: 00 Pain in Left Problem Resolve left paraspinal d 14 paraspinal back pain 14:21: region 00 Dental Dental Problem Active 2014-11 abscess abscess 13:31: 00 Hypokalemia Hypokalemia Problem Resolve 2003-11 d 12-05 06:26: 00 Chest pain Chest pain Problem Resolve 2003-11 d 12-05 05:06: 00 Toothache Toothache Problem Resolve 2003-11 d 12-04 10:18: 00 Procedures Procedure Date / Time Performed Performing Clinician Devi e Portable x-ray of chest, AP view 2016-10-04 00:00:00 Sofi VIRGEN EKG (electrocardiogram) 2016-10-04 00:00:00 YING VIRGEN Results Test Description Test Time Test Comments Text Results Atomic Results Result Comments Glucose [mass/volume] in serum or plasma 2016-10-04 06:12:00 Test Item Value Reference Range Comments Glucose [mass/volume] in serum or plasma (test code = 2345-7) 99 74-99 Urea nitrogen [mass/volume] in serum or [id number] 06:12:00 Test Item Value Reference Range Comments Urea nitrogen [mass/volume] in serum or plasma (test 5 -18 code = 3094-0) Creatinine [mass/volume] in serum or [id number] 06:12:00 Test Item Value Reference Range Comments Creatinine [mass/volume] in serum or plasma (test code 0.91 0.60-1.30 = 2160-0) Blood urea nitrogen/creatinine mass [id number] 06:12:00 Test Item Value Reference Range Comments Blood urea nitrogen/creatinine mass ratio (test code = 5.5 10-20 18049-7) Estimated glomerular filtration rate (GFR) non- Yivkjktc3846-07-28 06:12:00 Test Item Value Reference Range Comments Estimated glomerular filtration rate (GFR) non- > 60 >60 Dominican (test code = 38476-0) Reference Range: > or = 60 Units: mL/min/1.73 m2 Original MDRD Study Group Equation UsedEstimated glomerular filtration rate (GFR) 2016-10-04 06:12:00 Test Item Value Reference Range Comments Estimated glomerular filtration rate (GFR) > 60 >60 Dominican (test code = 89086-5) Reference Range: > or = 60 Units: mL/min/1.73 m2 Original MDRD Study Group Equation UsedSerum or plasma sodium measurement (mass or moles/volume)2016-10-04 06:12:00 Test Item Value Reference Range Comments Serum or plasma sodium measurement (mass or 142 136- 145 moles/volume) (test code = 2951-2) Potassium [moles/volume] in serum or knsprq4268-38-04 06:12:00 Test Item Value Reference Range Comments Potassium [moles/volume] in serum or plasma (test code 2.9 3.5-5.1 = 2823-3) RESULTS CALLED AND CORRECTLY READ BACK BY LUCIANA GUAJARDO AT 0609 FOR AKOSUA HAGAN MR# [id number] [moles/volume] in serum or [id number] 06:12:00 Test Item Value Reference Range Comments Chloride [moles/volume] in serum or plasma (test code 109 98-107 = 2075-0) Carbon dioxide, total [moles/volume] in serum or [id number] 06:12:00 Test Item Value Reference Range Comments Carbon dioxide, total [moles/volume] in serum or 24 21-32 plasma (test code = 8-9) Osmolality of serum or plasma by [id number] 06:12:00 Test Item Value Reference Range Comments Osmolality of serum or plasma by calculation (test 279 280-300 code = 95279-2) Calcium [mass/volume] in serum or [id number] 06:12:00 Test Item Value Reference Range Comments Calcium [mass/volume] in serum or plasma (test code = 8.5 8.5-10.1 34776-1) Protein [mass/volume] in serum or [id number] 06:12:00 Test Item Value Reference Range Comments Protein [mass/volume] in serum or plasma (test code = 7.5 6.4-8.2 2885-2) Albumin [mass/volume] in serum or [id number] 06:12:00 Test Item Value Reference Range Comments Albumin [mass/volume] in serum or plasma (test code = 3.7 3.5-5.0 1751-7) Bilirubin.total [mass/volume] in serum or [id number] 06:12:00 Test Item Value Reference Range Comments Bilirubin.total [mass/volume] in serum or plasma (test 0.3 0.2-1.0 code = 1975-2) Aspartate aminotransferase [enzymatic activity/volume] in serum or plasma 2016-10-04 06:12:00 Test Item Value Reference Range Comments Aspartate aminotransferase [enzymatic activity/volume] 8 15-37 in serum or plasma (test code = 1920-8) Alanine aminotransferase [enzymatic activity/volume] in serum or plasma 2016-10-04 06:12:00 Test Item Value Reference Range Comments Alanine aminotransferase [enzymatic activity/volume] 15 13-61 in serum or plasma (test code = 1742-6) Alkaline phosphatase [enzymatic activity/volume] in serum or tgjrnb2380-41-04 06:12:00 Test Item Value Reference Range Comments Alkaline phosphatase [enzymatic activity/volume] in 79 50-136 serum or plasma (test code = 6768-6) Serum or plasma anion [id number] 06:09:00 Test Item Value Reference Range Comments Serum or plasma anion gap (test code = 83534-0) 9.0 4-16 Troponin i.cardiac [mass/volume] in serum or [id number] 06:09:00 Test Item Value Reference Range Comments Troponin i.cardiac [mass/volume] in serum or plasma 0.000-0.045 (test code = 84228-2) [id number] 05:47:00 Test Item Value Reference Range Comments D-dimer (test code = 55809-0) 0.19 0.19-0.52 White blood cell count (WBC)2016-10-04 05:38:00 Test Item Value Reference Range Comments White blood cell count (WBC) (test code = FUC6137) 7.9 4.8-10.8 Blood erythrocytes count (number/volume)2016-10-04 05:38:00 Test Item Value Reference Range Comments Blood erythrocytes count (number/volume) (test code = 5.49 4.1-5.2 33500-2) Blood hemoglobin measurement (mass/volume)2016-10-04 05:38:00 Test Item Value Reference Range Comments Blood hemoglobin measurement (mass/volume) (test code 11.9 12.0-16.0 = 718-7) Blood hematocrit (volume fraction)2016-10-04 05:38:00 Test Item Value Reference Range Comments Blood hematocrit (volume fraction) (test code = 36.1 37.0-47.0 29433-5) [id number] 05:38:00 Test Item Value Reference Range Comments MCV (test code = 239400165) 65.7 80.0-98.0 [id number] 05:38:00 Test Item Value Reference Range Comments MCH (test code = 34901-6) 21.6 27.0-32.0 Erythrocyte mean corpuscular hemoglobin concentration measurement (mass/volume) 2016-10-04 05:38:00 Test Item Value Reference Range Comments Erythrocyte mean corpuscular hemoglobin concentration 32.8 33.0-36.0 measurement (mass/volume) (test code = 93533-6) Erythrocyte distribution width pigib7777-56-81 05:38:00 Test Item Value Reference Range Comments Erythrocyte distribution width ratio (test code = 15.0 10.0-14.5 23871-4) Blood platelets count (number/volume)2016-10-04 05:38:00 Test Item Value Reference Range Comments Blood platelets count (number/volume) (test code = 203 130-400 40512-6) Neutrophils seg % [id number] 05:38:00 Test Item Value Reference Range Comments Neutrophils seg % bld (test code = 77598-3) 52.4 42.0 -75.0 Lymphocyte %2016-10-04 05:38:00 Test Item Value Reference Range Comments Lymphocyte % (test code = 248054337) 38.3 20.0-51.0 [place] %2016-10-04 05:38:00 Test Item Value Reference Range Comments [place] % (test code = 5905-5) 7.4 3.5-12.0 Eos %2016-10-04 05:38:00 Test Item Value Reference Range Comments Eos % (test code = 713-8) 1.6 0.0-2.0 Baso %2016-10-04 05:38:00 Test Item Value Reference Range Comments Baso % (test code = 706-2) 0.3 0.0-1.0 Absolute neutrophil [id number] 05:38:00 Test Item Value Reference Range Comments Absolute neutrophil count (test code = 751-8) 4.2 1. 4-6.5 Absolute lymphocyte ltrxk9847-06-40 05:38:00 Test Item Value Reference Range Comments Absolute lymphocyte count (test code = 70554-6) 3.0 1.2-3.4 Absolute monocyte igfly1265-98-44 05:38:00 Test Item Value Reference Range Comments Absolute monocyte count (test code = 742-7) 0.6 0.1- 0.6 Blood eosinophils count (number/volume)2016-10-04 05:38:00 Test Item Value Reference Range Comments Blood eosinophils count (number/volume) (test code = 0.1 0.0-0.5 05986-4) Blood basophils count (number/volume)2016-10-04 05:38:00 Test Item Value Reference Range Comments Blood basophils count (number/volume) (test code = 0.0 0.0-0.1 87756-9) Automated blood microcytes wzmqrtsbi1623-43-00 05:38:00 Test Item Value Reference Range Comments Automated blood microcytes detection (test code = 3+ 38988-2) Qualitative urine hCG [id number] 05:26:00 Test Item Value Reference Range Comments Qualitative urine hCG test (test code = 234149497) NEGATIVE NEGATIVE PORTABLE CHEST APPAT NAME: AKOSUA HAGAN : 1985ADDRESS: [address] SEX: FPHONE: [phone] AGE: 31PRIORITY: ERLOCATION: ERM ORD PHY: YING VIRGEN MDMR#: [id number] PT CLASS: DEP ERDATE OF EXAM: 10/04/2016EXAMINATION: PORTABLE CHEST APChest single viewComparison: NoneIndication: Chest pain and shortness of breath with weakness. Symptoms for a few hours. History ofhypertension and sickle cell anemia.Findings: Single view of the chest demonstrates a trachea in the midline. Heart is upper normal toborderline prominent size likely attributable To the slightly lower lung volumes. Mild crowding ofthe vascular markings. No focal consolidation, pneumo thorax or effusions. Regional osseousstructures and soft tissues are grossly intact. Visualized upper abdomen is grossly unremarkable.Impression 1. No evidence of acute cardiopulmonary disease. In particular, no focal consolidationor infiltrate.Final report electronically signed by: Sahil Larkin MDINTERPRETING PHYSICIAN: SAHIL LARKIN MDThis document has been electronically signed by SAHIL LARKIN MD on 10/04/2016 06:52:45.Order # [id number] Encounters Start End Encounter Admission Attending Care Care Encounter Date/Time Date/Time Type Type Clinicians Facility Department ID 2016-10-04 2016-10-04 Departed [facility] [id number] 05:00:00 06:38:[address] 2016-10-03 2016-10-03 Departed [facility] [id number] 10:14:00 10:32:[address] Payers Payer Name Policy Type Policy Number Effective Date Expiration D ate Self Pay Social History This patient has no known social history. Vital Signs Vital Name Observation Time Observation Value Comments WEIGHT 2016-10-04 05:00:00 88.984250 kg HEIGHT 2016-10-04 05:00:00 162.939850 cm WEIGHT 2016-10-03 10:14:00 84.532935 kg HEIGHT 2016-10-03 10:14:00 162.351786 cm WEIGHT 2016-01-14 13:48:00 93.288599 kg HEIGHT 2016-01-14 13:48:00 162.261305 cm WEIGHT 2015-08-14 11:20:00 96.128887 kg HEIGHT 2015-08-14 11:20:00 162.328967 cm Hospital Discharge Instructions No hospital discharge instructions.No hospital discharge instructions.
== END ==
LOC: OD 10:02
PROVIDERS: ATTEND Nurse Practitioner Family
DX: G43.009 Migraine without aura, not intractable, without status migrainosus (principal); R53.82 Chronic fatigue, unspecified; R63.4 Abnormal weight loss; Z72.0 Tobacco use; I51.7 Cardiomegaly
CPT/HCPCS: 36415; 71046; 80053; 84443; 85025; 85652; 86140; 87536

== ENCOUNTER 2020-10-03 08:58 | Emergency (ER) | payer SELFPAY ==
--- NOTE | 2020-10-03 10:43 | ER Document Report ---
Entered by SHANNON MCDANIELS SCRIBE 10/03/20 1005 Acting as scribe for:ASHLEY COSBY MD ED General - General Chief Complaint: Abnormal Lab Results Stated Complaint: ABNORMAL LABS Time Seen by Provider: 10/03/20 10:03 Primary Care Provider: ORLIN WHATLEY MD [ACTIVE STAFF] - Follow up in 1 week MARILEE BELTRÁN NP [Primary Care Provider] - Follow up in 3-5 days Mode of Arrival: Ambulatory Information source: Patient Notes: This 35 year old female patient presents to the ED today for evaluation of abnormal lab results after being sent here from here [facility]. Per her PCP, patient was seen at [facility] on 09/12 for a reported weight loss of 100 lbs in the past year. At that time, she had lab work done that revealed a hemoglobin of 10.8. Patient had a follow-up appointment today and her hemoglobin dropped to 8.9, so she was sent to the ED for evaluation. Patient reports x1 menstrual period in the last x10 years which was in 11/2019. Patient discloses that prior to x2 weeks ago, she didn't really have an appetite and since being placed on medications for her appetite and headache, she has been fatigued. She also notes abdominal pain, but denies weakness, shortness of breath, or black/tarry stools. Review of the patient's past visits reveals that the patient lost approximately x24 lbs from 12/2018 to now. Review of the patient's past laboratory results reveals that she has a history of iron deficiency anemia with an average MCV of 66 and a Hgb ranging from 11.5- 10.5. TRAVEL OUTSIDE OF THE [place] IN LAST 30 DAYS: No - Related Data Allergies/Adverse Reactions: amoxicillin Allergy (Verified 10/03/20 10:20) Penicillins Allergy (Verified 10/03/20 10:20) Past Medical History - General Information source: Patient, [facility] Records - Social History Smoking Status: Current Every Day Smoker Cigarette use (# per day): Yes - 1 ppd Chew tobacco use (# tins/day): No Smoking Education Provided: No Frequency of alcohol use: Occasional Drug Abuse: None Family History: Reviewed & Not Pertinent, Hypertension Patient has suicidal ideation: No Patient has homicidal ideation: No - Past Medical History Cardiac Medical History: Reports: Hx Hypertension - No meds Pulmonary Medical History: Reports: Hx Asthma, Hx Bronchitis Past Surgical History: Reports: None - Immunizations Immunizations up to date: No Hx Diphtheria, Pertussis, Tetanus Vaccination: Yes - 08/02/2011 Review of Systems - Review of Systems Constitutional: See HPI, Other - Fatigue, Weight loss. denies: Weakness EENT: No symptoms reported Cardiovascular: No symptoms reported Respiratory: See HPI. denies: Short of breath Gastrointestinal: See HPI, Abdominal pain, Poor appetite. denies: Black stools Genitourinary: No symptoms reported Female Genitourinary: No symptoms reported Musculoskeletal: No symptoms reported Skin: No symptoms reported Hematologic/Lymphatic: No symptoms reported Neurological/Psychological: No symptoms reported -: Yes All other systems reviewed and negative Physical Exam - Vital signs Vitals: Temp Pulse Resp BP Pulse Ox 98.7 F 60 16 128/91 H 100 10/03/20 09:03 10/03/20 09:03 10/03/20 09:03 10/03/20 09:03 10/03/20 09:03 - General General appearance: Alert, Other - Appears gaunt - HEENT Head: Normocephalic, Atraumatic Eyes: Normal Pupils: PERRL Neck: Normal, Supple - Respiratory Respiratory status: No respiratory distress Chest status: Nontender Breath sounds: Wheezing Chest palpation: Normal - Cardiovascular Rhythm: Regular. No: Tachycardia Heart sounds: Normal auscultation Murmur: No Friction rub: No Gallop: None auscultated - Abdominal Inspection: Other - Loose skin on abdomen Distension: No distension Bowel sounds: Normal Tenderness: Tender - Epigastric, LUQ, and RUQ tenderness to palpation, mostly in the LUQ. No tenderness in the lower abdomen. Organomegaly: No organomegaly - Back Back: Normal, Nontender - Extremities General upper extremity: Normal inspection General lower extremity: Normal inspection. No: Edema - Neurological Neuro grossly intact: Yes Orientation: AAOx4 [place] Coma Scale Eye Opening: Spontaneous [place] Coma Scale Verbal: Oriented [place] Coma Scale Motor: Obeys Commands [place] Coma Scale Total: 15 - Psychological Associated symptoms: Normal affect, Normal mood - Skin Skin Temperature: Warm Skin Moisture: Dry Skin Color: Normal Course - Vital Signs Vital signs: Temp Pulse Resp BP Pulse Ox 98.7 F 60 18 151/90 H 100 10/03/20 09:03 10/03/20 09:03 10/03/20 12:01 10/03/20 12:01 10/03/20 12:01 - Laboratory Result Diagrams: 10/03/20 09:36 10/03/20 09:36 Laboratory results interpreted by me: 10/03/20 10/03/20 09:36 09:36 Hgb 11.3 L Hct 35.2 L MCV 67 L MCH 21.7 L RDW 16.7 H Lymph % (Auto) 48.8 H Seg Neutrophils % 35.9 L Chloride 110 H BUN 6 L - Consults Dr. Whatley Time consulted: 12:45 Consulted provider: follow-up in office - He will have his office contact her using the phone number in the medical record. Discharge - Discharge Clinical Impression: Weight loss, unintentional Iron deficiency anemia Qualifiers: Iron deficiency anemia type: unspecified iron deficiency Qualified Code(s): D50.9 - Iron deficiency anemia, unspecified Condition: Stable Disposition: HOME, SELF-CARE Additional Instructions: Your lab work today suggest you have a chronic iron deficiency anemia. You may have an absorption problem. You will be placed on iron tablets today to try to build up your iron levels in your blood. Your hemoglobin was 11.3, which is around your baseline. Dr. Whatley the press hand is going to have his office contact you to set up an appointment for further evaluation. Follow-up with your primary care provider in the next 3 to 5 days, take copies of your lab work from today with you. RETURN TO THE EMERGENCY ROOM IF ANY NEW OR WORSENING SYMPTOMS. Prescriptions: Ferrous Sulfate 325 mg PO DAILY #100 tablet. Referrals: ORLIN WHATLEY MD [ACTIVE STAFF] - Follow up in 1 week MARILEE BELTRÁN NP [Primary Care Provider] - Follow up in 3-5 days I personally performed the services described in the documentation, reviewed and edited the documentation which was dictated to the scribe in my presence, and it accurately records my words and actions.
[2020-10-03 10:54] LABS: ABSOLUTE EOSINOPHILS # (AUTO) 0.2 10^3/uL (0.0-0.6); ABSOLUTE LYMPHOCYTES (AUTO) 2.7 10^3/uL (0.5-4.7); ABSOLUTE MONOCYTES (AUTO) 0.7 10^3/uL (0.1-1.4); BASOPHILS % (AUTO) 0.4 % (0-2); EOSINOPHILS % (AUTO) 2.8 % (0-6); HEMATOCRIT 35.2 % (36.0-47.0); HEMOGLOBIN 11.3 g/dL (12.0-15.5); LYMPHOCYTES % (AUTO) 48.8 % (13-45); MEAN CORPUSCULAR HEMOGLOBIN 21.7 pg (27.0-33.4); MEAN CORPUSCULAR HGB CONC 32.3 g/dL (32.0-36.0); MEAN CORPUSCULAR VOLUME 67 fl (80-97); MONOCYTES % (AUTO) 12.1 % (3-13); PLATELET COUNT 208 10^3/uL (150-450); RED BLOOD COUNT 5.23 10^6/uL (3.72-5.28); RED CELL DISTRIBUTION WIDTH 16.7 % (11.5-14.0); SEGMENTED NEUTROPHILS % (AUTO) 35.9 % (42-78); TOTAL CELLS COUNTED % (AUTO) 100 %; WHITE BLOOD COUNT 5.6 10^3/uL (4.0-10.5)
[2020-10-03 10:56] LABS: APPEARANCE,URINE CLEAR; BILIRUBIN,URINE NEGATIVE (NEGATIVE); COLOR,URINE STRAW; GLUCOSE, URINE NEGATIVE (NEGATIVE); KETONES,URINE NEGATIVE (NEGATIVE); LEUKOCYTE ESTERASE,URINE NEGATIVE (NEGATIVE); NITRITE,URINE NEGATIVE (NEGATIVE); PROTEIN,URINE NEGATIVE (NEGATIVE); URINE SPECIFIC GRAVITY 1.006; UROBILINOGEN,URINE NEGATIVE mg/dL (<2.0)
[2020-10-03 11:00] LABS: IRON(TIBC) 109.8 ug/dL (37-170)
[2020-10-03 11:03] LABS: ALBUMIN 4.4 g/dL (3.5-5.0); ALKALINE PHOSPHATASE 75 U/L (38-126); ANION GAP 6 (5-19); ASPARTATE AMINO TRANSFERASE 24 U/L (14-36); BILIRUBIN,DIRECT 0.2 mg/dL (0.0-0.4); BILIRUBIN,TOTAL 0.6 mg/dL (0.2-1.3); BLOOD UREA NITROGEN 6 mg/dL (7-20); CALCIUM 9.3 mg/dL (8.4-10.2); CARBON DIOXIDE 24 mmol/L (22-30); CHLORIDE 110 mmol/L (98-107); CREATINE KINASE 81 U/L (30-135); GLUCOSE 77 mg/dL (75-110); TOTAL PROTEIN 7.9 g/dL (6.3-8.2)
[2020-10-03 11:05] LABS: C-REACTIVE PROTEIN < 5.0 mg/L (<10.0)
[2020-10-03 11:07] LABS: ABSOLUTE RETICS # 0.053 10^6/uL (0.028-0.122)
[2020-10-03 12:12] LABS: FOLATE 6.02 ng/mL (>2.76)
[2020-10-03 13:09] VITALS: BP 140/102
== END 2020-10-03 13:09 | disposition home or self-care (01) ==
LOC: ER 08:58
DX: D50.9 Iron deficiency anemia, unspecified (principal); R63.4 Abnormal weight loss; R63.0 Anorexia; R51.9 Headache, unspecified; R53.83 Other fatigue; R10.9 Unspecified abdominal pain; R10.814 Left lower quadrant abdominal tenderness; R10.816 Epigastric abdominal tenderness; R10.811 Right upper quadrant abdominal tenderness; F17.210 Nicotine dependence, cigarettes, uncomplicated; I10 Essential (primary) hypertension; J45.909 Unspecified asthma, uncomplicated
CPT/HCPCS: 36415; 80053; 81001; 82550; 82607; 82728; 82746; 83540; 83550; 83690; 83735; 85025; 85045; 86140; 86850; 86900; 86901; 99283

== ENCOUNTER 2020-10-16 07:00 | Day surgery (SDC) | payer SELFPAY ==
[2020-10-16 08:44] VITALS: BP 132/90
[2020-10-16] MEDS ORDERED: PROPOFOL INJ 200 MG/20 ML VIAL IV ONE (10:16)
--- NOTE | 2020-10-16 11:00 | Operative Report ---
Operative Report DATE OF SURGERY: 10/16/20 Operative Report: The risk, benefits and alternatives of the procedure including the risk of bleeding, perforation requiring surgery have been explained to the patient in detail and consent has been obtained. Patient is taken back to the endoscopy suite and placed in left, lateral decubital position. Timeout was called. Propofol medication is administered. Rectal examination is done which did not reveal any masses, tears or fissures. An Olympus videoscope is introduced into the patient's rectum. Scope was then carefully advanced all the way to the cecum. Cecum was identified by the usual anatomical landmarks including the ileocecal valve as well as the appendiceal office. Photodocumentation is obtained. Scope was then sequentially pulled back via the various segments of the colon including the ascending colon, hepatic flexure, transverse colon, splenic flexure, descending colon finally into the rectosigmoid portions of the colon. Retroflexion maneuver is performed. The risks benefits and alternatives of the procedure explained to the patient in detail and informed consent is obtained.A GIF Olympus video scope was inserted into the patient's mouth and hypopharynx ,the esophagus is identified intubated and insufflated ,the scope was then advanced through the esophagus stomach and duodenum, retroflexion maneuver is done ,the esophagus stomach and first and second portions of the duodenum examined PREOPERATIVE DIAGNOSIS: Weight loss, iron for iron deficiency anemia POSTOPERATIVE DIAGNOSIS: Random biopsies taken in the terminal ileum rule out Crohn's disease. Normal colonoscopy. Mild gastritis status post biopsy. No evidence of GI bleeding either in the upper or lower scopes OPERATION: Colonoscopy with biopsy. EGD with biopsy SURGEON: KOBY SANCHES ANESTHESIA: LMAC TISSUE REMOVED OR ALTERED: As noted above. COMPLICATIONS: None. ESTIMATED BLOOD LOSS: None. INTRAOPERATIVE FINDINGS: As noted above PROCEDURE: Patient tolerated the procedure well. No immediate postprocedure complications are noted. Patient is discharged in good condition. Discharge date 10/16/2020. Discharge diet: Regular. Discharge activity: Regular. 2 to 3-week follow-up to discuss findings. Patient is instructed call the office or proceed to the emergency room should there be any further problems or questions. Wait on the pathology.
== END 2020-10-16 11:48 | disposition home or self-care (01) ==
LOC: END 07:00
PROVIDERS: ATTEND Internal Medicine Gastroenterology
DX: K29.70 Gastritis, unspecified, without bleeding (principal); B96.81 Helicobacter pylori [H. pylori] as the cause of diseases classified elsewhere; K50.00 Crohn's disease of small intestine without complications; R63.4 Abnormal weight loss; D50.0 Iron deficiency anemia secondary to blood loss (chronic); Z68.23 Body mass index [BMI] 23.0-23.9, adult; I10 Essential (primary) hypertension; J45.909 Unspecified asthma, uncomplicated; Z79.899 Other long term (current) drug therapy; Z72.0 Tobacco use; Z88.0 Allergy status to penicillin
CPT/HCPCS: 43239; 45380; 88305 ×2; J2704; 88342

== ENCOUNTER 2020-10-17 09:28 | Outpatient (CLI) | payer SELFPAY ==
[~2020-10-17 09:28] MED LIST: FERUMOXYTOL (NON-ESRD) 510 MG/NS 100 ML IV PRN; NORMAL SALINE 250 ML IV PRN
[2020-10-17 09:45] VITALS: BP 141/80
== END 2020-10-17 10:45 | disposition home or self-care (01) ==
LOC: II 09:28 → 5TH 09:33 → II 10:45
PROVIDERS: ATTEND Internal Medicine
DX: D50.8 Other iron deficiency anemias (principal); K90.9 Intestinal malabsorption, unspecified
CPT/HCPCS: 96365; Q0138; J7050

== ENCOUNTER 2020-10-24 08:56 | Outpatient (CLI) | payer SELFPAY ==
[2020-10-24 09:26] VITALS: BP 138/93
== END 2020-10-24 10:15 | disposition home or self-care (01) ==
LOC: II 08:56 → 5TH 09:09 → II 10:15
PROVIDERS: ATTEND Internal Medicine
DX: D50.8 Other iron deficiency anemias (principal); K90.9 Intestinal malabsorption, unspecified
CPT/HCPCS: 96365; Q0138; J7050

== ENCOUNTER 2020-10-28 19:23 | Emergency (ER) | payer SELFPAY ==
[2020-10-28 19:40] VITALS: BP 142/80
[2020-10-28] MEDS ORDERED: LIDOCAINE 2% VISCOUS SOLN 15 ML UDCUP PO ONE (19:40)
[2020-10-28] MEDS ORDERED: IBUPROFEN 600 MG TABLET PO ONE (19:40)
[2020-10-28] MEDS ORDERED: CLINDAMYCIN HCL 150 MG CAPSULE PO ONE (19:40)
--- NOTE | 2020-10-28 19:46 | ER Document Report ---
ED Oral Problem - General Chief Complaint: Toothache Stated Complaint: MOUTH PAIN,FEVER Time Seen by Provider: 10/28/20 19:31 Primary Care Provider: YOLA WILL DDS [ACTIVE STAFF] - Follow up as needed MARILEE BELTRÁN NP [Primary Care Provider] - Follow up as needed Mode of Arrival: Ambulatory Information source: Patient Notes: 35-year-old female presented ED for complaint of pain to the left lower jaw. She has multiple teeth that are off right at the gumline. There is swelling to the gumline. She does have minimal swelling to the face. She states she is al lergic to penicillin so we will start her on clindamycin ibuprofen and viscous lidocaine. She does need to follow-up with a dentist to have these teeth surgically removed as they are right at the gumline. It is alert oriented respirations regular nonlabored speaking in full sentences. Constitutional: Negative for fever. HENT: Dental pain to the left lower jaw multiple teeth off at the gumline with redness and swelling to the gums. Eyes: Negative for visual changes. Cardiovascular: Negative for chest pain. Respiratory: Negative for shortness of breath. Gastrointestinal: Negative for abdominal pain, vomiting or diarrhea. Genitourinary: Negative for dysuria. Musculoskeletal: Negative for back pain. Skin: Negative for rash. Neurological: Negative for headaches, weakness or numbness. 10 point ROS negative except as marked above and in HPI. PHYSICAL EXAMINATION: GENERAL: Well-appearing, well-nourished and in no acute distress. HEAD: Atraumatic, normocephalic. EYES: Pupils equal round extraocular movements intact, conjunctiva are normal. ENT: Tenderness and swelling to the left gums with multiple teeth down to the gumline. NECK: Normal range of motion LUNGS: No respiratory distress Musculoskeletal: Normal range of motion NEUROLOGICAL: Normal speech, normal gait. PSYCH: Normal mood, normal affect. SKIN: Warm, Dry, normal turgor, no rashes or lesions noted. TRAVEL OUTSIDE OF THE [place] IN LAST 30 DAYS: No - HPI Patient complains to provider of: Swelling of jaw, Toothache Onset: Other - States have been down to the gumline for a long time they have been painful and swollen for 2 days Onset: Gradual Quality of pain: Sharp Severity: Moderate Pain Level: 4 Associated symptoms: Toothache Worsened by: Nothing Relieved by: Nothing Similar symptoms previously: Yes Recently seen / treated by doctor/dentist: No - Related Data Allergies/Adverse Reactions: amoxicillin Allergy (Verified 10/16/20 07:34) Penicillins Allergy (Verified 10/16/20 07:34) Past Medical History - General Information source: Patient - Social History Smoking Status: Current Every Day Smoker Cigarette use (# per day): Yes - 4-5 a day Smoking Education Provided: Yes Frequency of alcohol use: Social Drug Abuse: None Occupation: [employer] Lives with: Parents Family History: Reviewed & Not Pertinent, Hypertension Patient has suicidal ideation: No Patient has homicidal ideation: No - Past Medical History Cardiac Medical History: Reports: Hx Hypertension - No meds Comment Only: Hx Heart Attack - ENLARGED HEART Pulmonary Medical History: Reports: Hx Asthma, Hx Bronchitis EENT Medical History: Reports: None Neurological Medical History: Reports: None Endocrine Medical History: Reports: None Renal/ Medical History: Reports: None Malignancy Medical History: Reports: None GI Medical History: Reports: None Musculoskeletal Medical History: Reports None Skin Medical History: Reports None Psychiatric Medical History: Reports: None Traumatic Medical History: Reports: None Infectious Medical History: Reports: None Surgical Hx: Negative Past Surgical History: Reports: None - Immunizations Immunizations up to date: No Hx Diphtheria, Pertussis, Tetanus Vaccination: Yes - 08/02/2011 Physical Exam - Vital signs Vitals: Temp Pulse Resp BP Pulse Ox 98.8 F 90 18 142/80 H 100 10/28/20 19:34 10/28/20 19:34 10/28/20 19:34 10/28/20 19:34 10/28/20 19:34 Course - Vital Signs Vital signs: Temp Pulse Resp BP Pulse Ox 98.8 F 90 18 142/80 H 100 10/28/20 19:34 10/28/20 19:34 10/28/20 19:34 10/28/20 19:34 10/28/20 19:34 - Laboratory Results Critical Laboratory Results Reviewed: No Critical Results - Radiology Results Critical Radiology Results Reviewed: No Critical Results Discharge - Discharge Clinical Impression: Pain due to dental caries Condition: Stable Disposition: HOME, SELF-CARE Additional Instructions: TOOTHACHE: Your pain is due to dental decay. The tooth must be repaired in order for you to feel better. You will, therefore, be referred to a dentist. We do not have dentists on the staff at [facility]. Severe swelling or drainage around a tooth usually means a dental abscess. This also requires evaluation and treatment by the dentist, but antibiotics may be prescribed while awaiting dental treatment. You should be rechecked immediately if you develop major swelling of the face, increasing pain, a lump in the jaw or gums, headache, difficulty swallowing, or fever. CLINDAMYCIN: You have been given a prescription for the antibiotic clindamycin. It is often prescribed for infections in the mouth, such as dental infections or abscesses, and for skin infections due to MRSA. It's important that you take all the medication, unless instructed otherwise by your physician. Failure to complete the entire course can result in relapse of your condition. Common side effects of antibiotics include nausea, intestinal cramping, or diarrhea. Women may develop vaginal yeast infections, and babies can get yeast (thrush) in the mouth following the use of antibiotics. Contact your physician if you develop significant side effects from this medication. Allergy to this antibiotic can result in hives, wheezing, faintness, or itching. If symptoms of allergy occur, stop the medication and call the doctor. Ibuprofen Ibuprofen is an excellent, safe drug for pain control. In addition, it has potent antiinflammatory effects which are beneficial, especially in the treatment of injuries, arthritis, or tendonitis. It's best to take ibuprofen with food. Persons with ulcer disease or allergy to aspirin should notify their physician of this before taking ibuprofen. Take the medication exactly as prescribed. Don't take additional doses unless instructed to do so by your doctor. If you develop wheezing, shortness of breath, hives, faintness, stomach pain, vomiting, or dark black stools, return for re-evaluation at once. You have been given a syringe of viscous lidocaine. Please place a small amount on your finger and rub it to the gums that are sore. Please do not do this more often than every 4 hours or it will erode the skin on your gums and cause you more pain instead of less pain. Take your antibiotics until they are completed. Do not stop because you feel better this will just caused worse infections. FOLLOW-UP CARE: You have been referred for follow-up care to the dentists listed below. Call the dentists office for an appointment as you were instructed or within the next two days. If you experience worsening or a significant change in your symptoms, notify the physician immediately or return to the Emergency Department at any time for re-evaluation. [facility] [address] [place] [address] [facility] [address] [facility] [address] [facility] [place] [facility] [address] [email or web address] [address] [place] [address] Thursday- 8:00am to 5:00 pm Will see patients from other [facility]. Charges based on income and family size and accepts Medicare, Medicaid, and Insurances Will pull molars [facility] [id number] Hours of Operation 8:00 am - 4:30 pm weekdays The following dental offices accept Medicaid: [facility] Dr. Choud[address] Dr. [place] Dr. Riley Dr. Marquez Rashawn Allison Lutsavage, and Hari oral surgery Dr. Dougherty ([place]) Dr. Quintero ([place]) [facility] Drs. Reyes and Mookie ([place]) Dr. Fatima ([place]) [facility] Dr. Menendez ([place]) Drs. De La Fuente and ([place]) Medicaid Care Line Prescriptions: Clindamycin HCl [Cleocin HCl] 150 mg PO QID #40 capsule Referrals: MARILEE BELTRÁN NP [Primary Care Provider] - Follow up as needed YOLA WILL DDS [ACTIVE STAFF] - Follow up as needed
== END 2020-10-28 19:59 | disposition home or self-care (01) ==
LOC: ER 19:23
DX: K02.9 Dental caries, unspecified (principal); R50.9 Fever, unspecified; I10 Essential (primary) hypertension; F17.210 Nicotine dependence, cigarettes, uncomplicated; Z88.0 Allergy status to penicillin
CPT/HCPCS: 99283; J3490